=== PATIENT | female | born 1935 | race Caucasian/White ===

== ENCOUNTER 2018-02-27 14:32 | Observation (INO) ==
[2018-02-27 14:36] VITALS: BMI 20.7
--- NOTE | 2018-02-27 14:59 | DR.GENAD ---
HPI - PCP Primary Care Physician: MARLON - Complaint/Symptoms Chief Complaint:: PT. STATES ABOUT 6 WEEKS AGO SHE HAD A HERNIA REPAIR PER DR. NUÑEZ IN [place], [place]. PT. STATES SHE FELL ABOUT 3 WEEKS AGO AND CONTINUES TO HAVE LEFT LEG PAIN. SPOUSE STATES PT. HAS LOST A SIGNIFICANT AMOUNT OF WEIGHT AND HAS A POOR APPEPTITE. - Nurses notes reviewed Nurses Notes Review: Yes - Source History Provided: Patient, Family Member - Mode of Arrival Mode of Arrival: Ambulatory - Timing Onset of Chief Complaint: 02/06/18 Came on: Suddenly - Duration Duration: Constant Duration: Days PMH - PMH Past Medical History: Yes Past Medical History: Arthritis, Hypertension Past Surgical History: Yes Surgical History: Cholecystectomy, Hysterectomy, Other - Family History History of Family Medical Conditions: No - Social History Does patient currently use any type of tobacco product: No Have you used tobacco products in the last 12 months: No Type of Tobacco Use: None Does any household member use tobacco: No Alcohol Use: None Do you use any recreational Drugs:: No Lives With: Spouse Lives Where: Home - infectious screening In the last 2 months have you had wt loss of >10#?: NO Have you had fever, night sweats or hemotysis?: No Have you traveled outside the country in the last 6 months?: No Isolation: Standard PE - Vital Signs Vitals: Temperature 98.4 F Pulse Rate 90 Respiratory Rate 18 Blood Pressure 175/82 O2 Sat by Pulse Oximetry 98 - Discharge Plan Condition: Stable - Follow ups/Referrals Follow ups/Referrals: Varinder Prasad [Primary Care Provider] - 3 days - Instructions
[2018-02-27] MEDS ORDERED: TORADOL 60 MG VIAL IM ONE (15:29)
[2018-02-27] MEDS ORDERED: TORADOL 60 MG VIAL ONE (15:38)
[2018-02-27 15:50] LABS: BASOPHILS % (AUTO) 0.7 % (0.2-1.0); EOSINOPHILS # (AUTO) 0.1 x10^3/uL (0.0-0.2); HEMATOCRIT 32.1 % (36.0-47.0); HEMOGLOBIN 10.6 g/dL (12.0-16.0); LYMPHOCYTES # (AUTO) 1.4 X10^3/uL (1.3-2.9); LYMPHOCYTES % (AUTO) 22.7 % (21.0-51.0); MEAN CORPUSCULAR HEMOGLOBIN 30.2 pg (27.0-34.0); MEAN CORPUSCULAR HGB CONC 33.1 g/dL (33.0-35.0); MEAN CORPUSCULAR VOLUME 91.4 fL (80.0-100.0); MEAN PLATELET VOLUME 7.7 fL (7.4-11.0); MONOCYTES # (AUTO) 0.4 x10^3/uL (0.3-0.8); NEUTROPHILS # (AUTO) 4.3 x10^3/uL (2.2-4.8); NEUTROPHILS % (AUTO) 67.6 % (42.0-75.0); PLATELET COUNT 488 X10^3/uL (150.0-450.0); RED BLOOD COUNT 3.52 X10^6/uL (3.5-5.4); RED CELL DISTRIBUTION WIDTH 14.4 % (11.6-16.5); WHITE BLOOD COUNT 6.4 X10^3/uL (3.6-10.0)
[2018-02-27 15:51] LABS: BILIRUBIN,URINE NEGATIVE (NEGATIVE); BLOOD/HEMOGLOBIN,URINE 1+ (NEGATIVE); GLUCOSE, URINE NEGATIVE (NEGATIVE); KETONES,URINE 1+ (NEGATIVE); LEUKOCYTE ESTERASE ,URINE NEGATIVE (NEGATIVE); NITRITES,URINE NEGATIVE (NEGATIVE); PROTEIN,URINE NEGATIVE (NEGATIVE); UROBILINOGEN,URINE NORMAL (NORMAL)
[2018-02-27 16:00] LABS: APPEARANCE,URINE CLEAR (CLEAR); BACTERIA,URINE NEGATIVE /HPF (NEGATIVE); COLOR,URINE YELLOW (YELLOW); RBC,URINE 0-2 /HPF (NONE SEEN); SQUAMOUS EPITHELIAL CELL,UR RARE /HPF (NEGATIVE)
[2018-02-27 16:08] LABS: ALANINE AMINOTRANSFERASE 10 Units/L (12-78); ALBUMIN 3.2 g/dL (3.4-5.0); ALKALINE PHOSPHATASE 82 Units/L (46-116); ASPARTATE AMINO TRANSFERASE 12 Units/L (15-37); BLOOD UREA NITROGEN 21 mg/dL (7-18); CALCIUM 8.8 mg/dL (8.5-10.1); CARBON DIOXIDE 25.8 mmol/L (21-32); CHLORIDE 101 mmol/L (98-107); COR CA(FOR HYPOALB) 9.4 mg/dL (8.5-10.1); CREATININE 1.15 mg/dL (0.55-1.02); SODIUM 134 mmol/L (136-145); TOTAL PROTEIN 7.9 g/dL (6.4-8.2); eGFR NON BLACK RACES 48 (>60)
--- NOTE | 2018-02-27 16:40 | CT ---
HISTORY: Pain after fall Study: CT of the left femur without contrast Comparison: None Technique: Multiple axial images were obtained without administration of IV contrast. Sagittal and c oronal reformats were performed and reviewed. Dose reduction techniques including Automated Exposure Control (AEC) and adjustment of mA and kV were utilized. Findings: The visualized portions of the bony pelvis appear intact. The left femur and acetabulum demonstrate m oderate arthritic changes within the acute osseous abnormality. There are degenerative of the left kn ee joint. No effusion is seen. Intrapelvic structures are unremarkable with prior hysterectomy the di verticulosis noted. No free fluid or air identified. IMPRESSION: 1. Degenerative changes without acute osseous abnormality. Reported By:
[2018-02-27] MEDS: NS 1000 ML 1,000 ML IV SCH ×2 (18:22→21:26)
[2018-02-27] MEDS: NORCO 10/325 TAB PO PRN (23:03)
[2018-02-28] MEDS ORDERED: MORPHINE SULFATE INJ 2 MG INJ ONE (02:55)
[2018-02-28] MEDS: NS 1000 ML 1,000 ML IV SCH ×2 (07:45→20:49)
[2018-02-28] MEDS ORDERED: MORPHINE SULFATE JET NEB NEB ONE (09:10)
[2018-02-28] MEDS: MORPHINE SULFATE INJ 2 MG INJ IVP PRN ×3 (09:12→20:47)
--- NOTE | 2018-02-28 09:59 | CT ---
HISTORY: Injury, fall, persistent left lower extremity pain Study: CT left lower leg without contrast Comparison: None Technique: Axial noncontrast images with coronal and sagittal reformats. Dose reduction procedures we re used with mA/kv adjusted for body size. Findings: Imaging was obtained from just above the knee through the calcaneus. The distal femur, patella, tibia , fibula, and tibiotalar joints are normal. The talus and calcaneus are intact. No soft tissue abnorm ality is identified. No ankle or knee joint effusions are identified. IMPRESSION: No significant abnormality identified Reported By:
[2018-02-28] MEDS ORDERED: PHARMACY CONSULT - TPN XX SCH (10:00)
[2018-02-28] MEDS ORDERED: ALBUMIN HUMAN 25%- 100 ML 100 ML IV ONE (10:27)
[2018-02-28] MEDS: ALBUMIN HUMAN 25%- 100 ML 100 ML IV SCH (10:30)
[2018-02-28 14:09] LABS: ALANINE AMINOTRANSFERASE 8 Units/L (12-78); ALBUMIN 2.5 g/dL (3.4-5.0); ALKALINE PHOSPHATASE 62 Units/L (46-116); ASPARTATE AMINO TRANSFERASE 11 Units/L (15-37); BLOOD UREA NITROGEN 21 mg/dL (7-18); CALCIUM 7.9 mg/dL (8.5-10.1); CARBON DIOXIDE 19.9 mmol/L (21-32); CHLORIDE 106 mmol/L (98-107); COR CA(FOR HYPOALB) 9.1 mg/dL (8.5-10.1); CREATININE 1.16 mg/dL (0.55-1.02); SODIUM 137 mmol/L (136-145); TOTAL PROTEIN 6.3 g/dL (6.4-8.2); eGFR NON BLACK RACES 48 (>60)
[2018-02-28 14:10] LABS: BASOPHILS % (AUTO) 0.4 % (0.2-1.0); EOSINOPHILS # (AUTO) 0.2 x10^3/uL (0.0-0.2); EOSINOPHILS % (AUTO) 2.9 % (0.9-2.9); HEMATOCRIT 27.3 % (36.0-47.0); LYMPHOCYTES # (AUTO) 2.1 X10^3/uL (1.3-2.9); LYMPHOCYTES % (AUTO) 39.7 % (21.0-51.0); MEAN CORPUSCULAR HEMOGLOBIN 30.4 pg (27.0-34.0); MEAN CORPUSCULAR HGB CONC 32.9 g/dL (33.0-35.0); MEAN CORPUSCULAR VOLUME 92.4 fL (80.0-100.0); MONOCYTES # (AUTO) 0.6 x10^3/uL (0.3-0.8); MONOCYTES % (AUTO) 10.5 % (0.0-13.0); NEUTROPHILS # (AUTO) 2.5 x10^3/uL (2.2-4.8); NEUTROPHILS % (AUTO) 46.5 % (42.0-75.0); PLATELET COUNT 404 X10^3/uL (150.0-450.0); RED BLOOD COUNT 2.95 X10^6/uL (3.5-5.4); RED CELL DISTRIBUTION WIDTH 14.3 % (11.6-16.5); WHITE BLOOD COUNT 5.4 X10^3/uL (3.6-10.0)
[2018-02-28] MEDS ORDERED: PROCALAMINE 3 % 1,000 ML IV ONE (15:26)
[2018-02-28] MEDS: PROCALAMINE 3 % 1,000 ML with MVI INJ (ADULT) 10 ML IV SCH ×2 (15:29)
[2018-02-28] MEDS ORDERED: ULTRAM PO PRN (16:07)
[2018-02-28 16:28] LABS: CKMB % 3.8 % (<4); CREATINE KINASE 42 Units/L (26-192); CREATINE KINASE MB 1.6 ng/mL (0-4.0); TROPONIN I < 0.02 ng/mL (0-1.5)
--- NOTE | 2018-02-28 16:30 | VAS ---
HISTORY: Status post fall. Left hip pain.. Study: Left lower extremity venous vascular examination: Multiplanar ultrasonographic examination o f the deep venous system of the left lower extremity was performed using color, grayscale and pulsed Doppler imaging. Augmentation and compression techniques utilized. Comparison: None Findings: The common femoral vein, greater saphenous junction, superficial femoral vein, popliteal vein and tib ial vein show normal color flow. No intraluminal filling defects are identified. The common femoral vein, superficial femoral vein, popliteal vein and tibial vein show normal augmentation and compress ion. IMPRESSION: 1. No evidence of deep venous thrombosis involving the left lower extremity. Reported By:
[2018-02-28] MEDS: ZESTRIL TAB 20 MG PO SCH (17:00)
[2018-02-28] MEDS ORDERED: ZESTRIL TAB 20 MG ONE (18:59)
[2018-02-28] MEDS: CARAFATE PO SCH (20:46)
[2018-02-28] MEDS: LIPITOR TAB 20 MG PO SCH (20:46)
[2018-02-28] MEDS: ZANAFLEX PO PRN (23:36)
[2018-03-01] MEDS: MORPHINE SULFATE INJ 2 MG INJ IVP PRN ×2 (00:51→20:26)
[2018-03-01 06:17] LABS: BASOPHILS % (AUTO) 0.9 % (0.2-1.0); EOSINOPHILS # (AUTO) 0.2 x10^3/uL (0.0-0.2); EOSINOPHILS % (AUTO) 3.5 % (0.9-2.9); HEMATOCRIT 24.6 % (36.0-47.0); HEMOGLOBIN 8.2 g/dL (12.0-16.0); LYMPHOCYTES # (AUTO) 2.3 X10^3/uL (1.3-2.9); LYMPHOCYTES % (AUTO) 43.2 % (21.0-51.0); MEAN CORPUSCULAR HEMOGLOBIN 30.5 pg (27.0-34.0); MEAN CORPUSCULAR HGB CONC 33.2 g/dL (33.0-35.0); MEAN CORPUSCULAR VOLUME 91.9 fL (80.0-100.0); MEAN PLATELET VOLUME 8.1 fL (7.4-11.0); MONOCYTES # (AUTO) 0.5 x10^3/uL (0.3-0.8); MONOCYTES % (AUTO) 9.7 % (0.0-13.0); NEUTROPHILS # (AUTO) 2.3 x10^3/uL (2.2-4.8); NEUTROPHILS % (AUTO) 42.7 % (42.0-75.0); PLATELET COUNT 317 X10^3/uL (150.0-450.0); RED BLOOD COUNT 2.68 X10^6/uL (3.5-5.4); RED CELL DISTRIBUTION WIDTH 14.5 % (11.6-16.5); WHITE BLOOD COUNT 5.4 X10^3/uL (3.6-10.0)
[2018-03-01 06:44] LABS: ALANINE AMINOTRANSFERASE 8 Units/L (12-78); ALBUMIN 2.5 g/dL (3.4-5.0); ALKALINE PHOSPHATASE 51 Units/L (46-116); ASPARTATE AMINO TRANSFERASE 9 Units/L (15-37); BLOOD UREA NITROGEN 15 mg/dL (7-18); CALCIUM 7.7 mg/dL (8.5-10.1); CARBON DIOXIDE 22.5 mmol/L (21-32); CHLORIDE 108 mmol/L (98-107); COR CA(FOR HYPOALB) 8.9 mg/dL (8.5-10.1); SODIUM 138 mmol/L (136-145); TOTAL PROTEIN 5.9 g/dL (6.4-8.2); eGFR NON BLACK RACES > 60 (>60)
[2018-03-01] MEDS ORDERED: ZESTRIL TAB 20 MG ONE (07:32)
[2018-03-01] MEDS: ALBUMIN HUMAN 25%- 100 ML 100 ML IV SCH (08:04)
[2018-03-01] MEDS: CARAFATE PO SCH (08:05)
[2018-03-01] MEDS: ZESTRIL TAB 20 MG PO SCH (08:06)
[2018-03-01] MEDS: NORCO 10/325 TAB PO PRN (08:09)
[2018-03-01] MEDS ORDERED: PERCOCET TAB 5/325 MG PO PRN (08:46)
[2018-03-01] MEDS ORDERED: TobraDEX OPHTH OPHTH 1 DOSE EACHEYE PRN (08:46)
[2018-03-01] MEDS: NS 1000 ML 1,000 ML IV SCH (09:46)
[2018-03-01] MEDS: CARAFATE ORAL SUSP PO SCH ×2 (09:50→20:25)
[2018-03-01] MEDS ORDERED: TobraDEX OPHTH SUSP ONE (14:23)
[2018-03-01] MEDS: PROCALAMINE 3 % 1,000 ML with MVI INJ (ADULT) 10 ML IV SCH ×2 (14:29)
[2018-03-01] MEDS: TobraDEX OPHTH SUSP RIGHTEYE SCH ×3 (16:10→23:52)
--- NOTE | 2018-03-01 16:27 | DR.H&P ---
H&P - History & Physical for Day of: H&P Date: 02/27/18 - Chief Complaint Chief Complaint: GENERALIZED WEAKNESS, LEFT LEG PAIN, DIFFICULTY SWALLOWING - History of Present Illness History of Present Illness: IS A 82 YEAR OLD PATIENT OF OURS WHO PRESENTED TO THE EMERGENCY ROOM WITH COMPLAINTS OF SEVERE LEFT LEG PAIN, GENERALIZED WEAKNESS, AND DIFFICULTY SWALLOWING. SHE REPORTS FALLING APPROXIMATELY THREE WEEKS AGO AND HAS HAD PAIN TO LEFT LEG SINCE. SPOUSE REPORTS THAT PATIENT HAS ALSO HAD A DECREASED APPETITIE AND HAS LOST A SIGNIFICANT AMOUNT OF WEIGHT. ON ARRIVAL, VITALS WERE 98.4-90-18-98%-175/82. LABS WERE OBTAINED. ABNORMAL LAB VALUES INCLUDE THE FOLLOWING: HGB 10.6, HCT 32.1, PLT COUNT 488, SODIUM 134, POTASSIUM 5.2, BUN 21, CREATINE 1.15, AST 12, ALT 10, ALBUMIN 3.2. A URINALYSIS WAS OBTAINED AND REVEALED: WBC- NONE SEEN, RBC 0-2, BACTERIA NEGATIVE, LEUKOCYTES NEGATIVE. A CT OF THE LEFT FEMUR WITHOUT CONTRAST WAS OBTAINED AND REVEALED DEGENERATIVE CHANGES WITHOUT ACUTE OSSEOUS ABNORMALITY. A CT OF THE LEFT LOWER LEG WITHOUT CONTRAST WAS ALSO OBTAINED AND REVEALED NO SIGNIFICANT ABNORMALITY. PATIENT WAS ADMITTED FOR FURTHER EVALUATION AND TREATMENT OF DEHYDRATION, DYSPHAGIA, AND LEFT LEG PAIN. SHE WAS STARTED ON NORMAL SALINE AT 80ML/HR. WE PLAN TO FOLLOW UP WITH AM LABS AND CONTINUE TO MONITOR PATIENT. - Past Medical History Past Medical History: Arthritis, Hypertension - Past Surgical History Surgical History: Appendectomy, Cholecystectomy, Hysterectomy, Other - Family History Family Medical History: Hypertension - Social History Does patient currently use any type of tobacco product: No Have you used tobacco products in the last 12 months: No Type of Tobacco Use: None Does any household member use tobacco: No Alcohol Use: None Drug Use: None - Medications Home Medications: Hydrocodone/Acetaminophen [Hydrocodone-Acetamin 10-325 mg] 1 tab PO TID PRN [History Confirmed 02/27/18] atorvastatin 20 mg PO HS 02/27/18 [History Confirmed 02/27/18] lisinopril 1 tab PO DAILY 02/27/18 [History Confirmed 02/27/18] metaxalone 1 tab PO Q6HR PRN 02/27/18 [History Confirmed 02/27/18] oxycodone-acetaminophen 2 tabs PO Q4H PRN 02/27/18 [History Confirmed 02/27/18] sucralfate 1 tab PO BID 02/27/18 [History Confirmed 02/27/18] sucralfate [Carafate] 1 teaspoon PO BID 02/27/18 [History Confirmed 02/27/18] tramadol 1 tab PO Q4-6H PRN 02/27/18 [History Confirmed 02/27/18] - Review of Systems Constitutional: Weakness, Malaise, Other (DECREASED APPETITIE). denies: Fever, Chills Eyes: No Symptoms Reported ENT: Other (DIFFICULTY SWALLOWING) Respiratory: No Symptoms Reported Cardiovascular: No Symptoms Reported Gastrointestinal: No Symptoms Reported Genitourinary: No Symptoms Reported Musculoskeletal: No Symptoms Reported Skin: No Symptoms Reported Neurological: Weakness - Physical Exam Vital Signs: Temperature 98.6 F Pulse Rate [Radial] 71 Pulse Rate 90 Respiratory Rate 18 Blood Pressure [Right Arm] 182/81 Blood Pressure 175/82 O2 Sat by Pulse Oximetry 98 Oriented: Normal Eyes: Normal Ear: Normal Nose: Normal Throat: Other (DYSPHAGIA) Respiratory: Clear Throughout Cardiovascular: Normal : Normal Auscultation: Bowel Sounds: Normal Palpation: Normal Tenderness: Normal Skin: Normal Musculoskeletal: Left, Leg, Tender Psychiatric: Normal Mood Description: Calm Affect: Normal Speech Pattern: Clear - Assessment/Plan (1) Dehydration Status: Acute Plan: NORMAL SALINE AT 80ML/HR, CONTINUE TO MONITOR (2) Dysphagia Qualifiers: Dysphagia type: unspecified Qualified Code(s): R13.10 - Dysphagia, unspecified Status: Acute Plan: SPEECH CONSULT, CONTINUE TO MONITOR (3) Left leg pain Status: Acute Plan: OBTAIN VENOUS DOPPLER IN THE MORNING - Allergies Allergies/Adverse Reactions: Allergies Allergy/AdvReac Type Severity Reaction Status Date / Time No Known Drug Allergies Allergy Verified 02/27/18 14:36
[2018-03-01] MEDS: LIPITOR TAB 20 MG PO SCH (20:25)
[2018-03-01] MEDS: ZANAFLEX PO PRN (23:00)
[2018-03-02] MEDS: TobraDEX OPHTH SUSP RIGHTEYE SCH ×2 (03:42→06:04)
[2018-03-02] MEDS: MORPHINE SULFATE INJ 2 MG INJ IVP PRN (06:17)
[2018-03-02] MEDS ORDERED: ZESTRIL TAB 20 MG ONE (07:09)
[2018-03-02] MEDS: ZESTRIL TAB 20 MG PO SCH (08:11)
[2018-03-02] MEDS: CARAFATE ORAL SUSP PO SCH (08:11)
[2018-03-02] MEDS: ALBUMIN HUMAN 25%- 100 ML 100 ML IV SCH (08:11)
[2018-03-02 08:31] VITALS: BP 104/67
[2018-03-02] MEDS ORDERED: NS 1000 ML IV SCH (09:00)
[2018-03-02] MEDS ORDERED: TobraDEX OPHTH OPHTH 1 DOSE EACHEYE PRN (10:00)
[2018-03-02] MEDS ORDERED: TobraDEX OPHTH OINT RIGHTEYE SCH (10:00)
--- NOTE | 2018-03-02 21:18 | PCM.PROG ---
Progress Note - Progress Note for Day of Date: 02/28/18 - Subjective Subjective: WAS ADMITTED FOR TREATMENT OF DEHYDRATION, DYSPHAGIA, AND LEFT LEG PAIN. TODAY, SHE IS ALERT AND ORIENTED, LYING IN BED ON MORNING ROUNDS. SHE IS NOTED WITH COMPLAINTS OF GENERALIZED WEAKNESS, LEFT LEG PAIN, AND DIFFICULTY SWALLOWING TODAY. ON EXAMINATION, HEART IS REGULAR IN RATE AND RHYTHM. BILATERAL LUNGS ARE NOTED WITH DIMINISHED LUNG SOUNDS THROUGHOUT. ABDOMEN IS ROUND, SOFT, AND NON-TENDER WITH NORMAL BOWEL SOUNDS NOTED IN ALL QUADRANTS. LEFT LEG IS NOTED WITH DECREASED RANGE OF MOTION. SHE REPORTS PAIN TO KNEE AND LOWER LEG. HER VITALS THIS MORNING ARE 99.0-82-20-98%-157/74. LABS WERE OBTAINED. ABNORMAL LAB VALUES INCLUDE THE FOLLOWING: RBC 2.95, HGB 9.0, HCT 27.3, CARBON DIOXIDE 19.9, BUN 21, CREATININE 1.16, CALCIUM 7.9, AST 11, ALT 8, TOTAL PROTEIN 6.3, ALBUMIN 2.5. TODAY, WE WILL OVTAIN A VENOUS DOPPLER OF THE LEFT LEG, CARDIAC ENZYMES, ORDER PT/OT, AND START PERIPHERAL TPN AND ALBUMIN 25% IV DAILY. OTHERWISE, WE WILL FOLLOW UP WITH AM LABS AND CONTINUE TO MONITOR PATIENT. - Past Medical Family Social History Past Med/Fam/Surg Hx: No changes since H&P Allergies: Allergies No Known Drug Allergies Allergy (Verified 02/27/18 14:36) - Review of Systems ROS: No change since H&P - Vital Signs and I&O's Vital Signs: Temperature 98.3 F Pulse Rate [Radial] 63 Pulse Rate 90 Respiratory Rate 18 Blood Pressure [Left Arm] 104/67 Blood Pressure [Right Arm] 147/65 Blood Pressure 175/82 O2 Sat by Pulse Oximetry 96 Intake and Output: Intake & Output 02/28/18 03/01/18 03/02/18 03/03/18 11:59 11:59 11:59 11:59 Intake Total 2720 / 2720 2420 / 2420 Balance 2720 / 2720 2420 / 2420 - Physical Exam Oriented: Normal Eyes: Normal Ear: Normal Nose: Normal Throat: Other (DYSPHAGIA) Cardiovascular: Normal : Normal Auscultation: Bowel Sounds: Normal Palpation: Normal Tenderness: Normal Skin: Normal Musculoskeletal: Left, Leg, Tender Psychiatric: Normal Mood Description: Calm Affect: Normal Speech Pattern: Clear, Appropriate - Laboratory and Diagnostics Result Diagrams: 03/01/18 04:51 03/01/18 04:51 Labs: Laboratory WBC 5.4 X10^3/uL (3.6-10.0) 03/01/18 04:51 RBC 2.68 X10^6/uL (3.5-5.4) L 03/01/18 04:51 Hgb 8.2 g/dL (12.0-16.0) L 03/01/18 04:51 Hct 24.6 % (36.0-47.0) L 03/01/18 04:51 MCV 91.9 fL (80.0-100.0) 03/01/18 04:51 MCH 30.5 pg (27.0-34.0) 03/01/18 04:51 MCHC 33.2 g/dL (33.0-35.0) 03/01/18 04:51 RDW 14.5 % (11.6-16.5) 03/01/18 04:51 Plt Count 317 X10^3/uL (150.0-450.0) 03/01/18 04:51 MPV 8.1 fL (7.4-11.0) 03/01/18 04:51 Neut % (Auto) 42.7 % (42.0-75.0) 03/01/18 04:51 Lymph % (Auto) 43.2 % (21.0-51.0) 03/01/18 04:51 [place] % (Auto) 9.7 % (0.0-13.0) 03/01/18 04:51 Eos % (Auto) 3.5 % (0.9-2.9) H 03/01/18 04:51 Baso % (Auto) 0.9 % (0.2-1.0) 03/01/18 04:51 Neut # (Auto) 2.3 x10^3/uL (2.2-4.8) 03/01/18 04:51 Lymph # (Auto) 2.3 X10^3/uL (1.3-2.9) 03/01/18 04:51 [place] # (Auto) 0.5 x10^3/uL (0.3-0.8) 03/01/18 04:51 Eos # (Auto) 0.2 x10^3/uL (0.0-0.2) 03/01/18 04:51 Baso # (Auto) 0.0 X10^3/uL (0.0-0.1) 03/01/18 04:51 Absolute Nucleated RBC 0.0 /100WBC 03/01/18 04:51 Sodium 138 mmol/L (136-145) 03/01/18 04:51 Corrected Sodium TNP 03/01/18 04:51 Potassium 4.7 mmol/L (3.5-5.1) 03/01/18 04:51 Chloride 108 mmol/L (98-107) H 03/01/18 04:51 Carbon Dioxide 22.5 mmol/L (21-32) 03/01/18 04:51 BUN 15 mg/dL (7-18) 03/01/18 04:51 Creatinine 0.80 mg/dL (0.55-1.02) 03/01/18 04:51 Est GFR (MDRD) Af Amer > 60 (>60) 03/01/18 04:51 Est GFR (MDRD) Non-Af > 60 (>60) 03/01/18 04:51 Glucose 84 mg/dL (65-99) 03/01/18 04:51 Calcium 7.7 mg/dL (8.5-10.1) L 03/01/18 04:51 Corrected Calcium 8.9 mg/dL (8.5-10.1) 03/01/18 04:51 Total Bilirubin 0.30 mg/dL (0.2-1.0) 03/01/18 04:51 AST 9 Units/L (15-37) L 03/01/18 04:51 ALT 8 Units/L (12-78) L 03/01/18 04:51 Alkaline Phosphatase 51 Units/L (46-116) 03/01/18 04:51 Creatine Kinase 42 Units/L (26-192) 02/28/18 11:50 CK-MB (CK-2) 1.6 ng/mL (0-4.0) 02/28/18 11:50 CK/CKMB % Calc 3.8 % (<4) 02/28/18 11:50 Troponin I < 0.02 ng/mL (0-1.5) 02/28/18 11:50 Total Protein 5.9 g/dL (6.4-8.2) L 03/01/18 04:51 Albumin 2.5 g/dL (3.4-5.0) L 03/01/18 04:51 Globulin 3.4 g/dL (2.5-4.5) 03/01/18 04:51 Albumin/Globulin Ratio 0.7 Ratio (1.1-2.1) L 03/01/18 04:51 Specimen Type Clean catch urine 02/27/18 15:43 Urine Color Yellow (YELLOW) 02/27/18 15:43 Urine Appearance Clear (CLEAR) 02/27/18 15:43 Urine pH 5.0 (5.0 - 8.0) 02/27/18 15:43 Ur Specific [place] 1.015 (1.000-1.030) 02/27/18 15:43 Urine Protein Negative (NEGATIVE) 02/27/18 15:43 Urine Glucose (UA) Negative (NEGATIVE) 02/27/18 15:43 Urine Ketones 1+ (NEGATIVE) 02/27/18 15:43 Urine Occult Blood 1+ (NEGATIVE) 02/27/18 15:43 Urine Nitrite Negative (NEGATIVE) 02/27/18 15:43 Urine Bilirubin Negative (NEGATIVE) 02/27/18 15:43 Urine Urobilinogen Normal (NORMAL) 02/27/18 15:43 Ur Leukocyte Esterase Negative (NEGATIVE) 02/27/18 15:43 Urine RBC 0-2 /HPF (NONE SEEN) 02/27/18 15:43 Urine WBC None seen /HPF (NONE SEEN) 02/27/18 15:43 Ur Squamous Epith Cells Rare /HPF (NEGATIVE) 02/27/18 15:43 Urine Bacteria Negative /HPF (NEGATIVE) 02/27/18 15:43 Ur Culture Indicated? No/not indicated 02/27/18 15:43 - Plan (1) Dehydration Status: Acute Plan: NORMAL SALINE AT 80ML/HR, CONTINUE TO MONITOR (2) Dysphagia Status: Acute Qualifiers: Dysphagia type: unspecified Qualified Code(s): R13.10 - Dysphagia, unspecified Plan: SPEECH CONSULT, CONTINUE TO MONITOR (3) Left leg pain Status: Acute Plan: OBTAIN VENOUS DOPPLER, CONTINUE TO MONITOR (4) Generalized weakness Status: Acute Plan: PT/OT, TPN, ALBUMIN, CONTINUE TO MONITOR (5) Hypoproteinemia Status: Acute Plan: START PERIPHERAL TPN, ALBUMIN, CONTINUE TO MONITOR
--- NOTE | 2018-03-02 21:19 | PCM.PROG ---
Progress Note - Progress Note for Day of Date: 03/01/18 - Subjective Subjective: WAS ADMITTED FOR TREATMENT OF DEHYDRATION, DYSPHAGIA, AND LEFT LEG PAIN. TODAY, SHE IS ALERT AND ORIENTED, LYING IN BED ON MORNING ROUNDS. SHE CONTINUES WITH COMPLAINTS OF GENERALIZED WEAKNESS AND LEFT LEG PAIN. SHE ALSO REPORTS REDNESS AND PAIN TO THE RIGHT EYE. ON EXAMINATION, HEART IS REGULAR IN RATE AND RHYTHM. BILATERAL LUNGS ARE NOTED TO BE CLEAR TO AUSCULTATION. ABDOMEN IS ROUND, SOFT, AND NON-TENDER WITH NORMAL BOWEL SOUNDS NOTED IN ALL QUADRANTS. HER VITALS THIS MORNING ARE 98.2-69-18-98%-167/70. LABS WERE OBTAINED. ABNORMAL LAB VALUES INCLUDE THE FOLLOWING: RBC 2.68, HGB 8.2, HCT 24.6, CHLORIDE 108, CALCIUM 7.7, AST 9, ALT 8, TOTAL PROTEIN 5.9, ALBUMIN 2.5. CARDIAC ENZYMES WITHIN NORMAL LIMITS. A VENOUS DOPPLER WAS OBTAINED AND REVEALED NO EVIDENCE OF DVT INVOLVING THE LEFT LOWER EXTREMITY. TODAY, WE WILL DISCONTINUE THE NORCO AND ORDER PERCOCET 5/325 ONE TABLET PO Q4H PRN. WE WILL ALSO START TOBRADEX EYE DROPS TO RIGHT EYE Q4H. OTHERWISE, WE WILL FOLLOW UP WITH AM LABS AND CONTINUE TO MONITOR PATIENT. - Past Medical Family Social History Past Med/Fam/Surg Hx: No changes since H&P Allergies: Allergies No Known Drug Allergies Allergy (Verified 02/27/18 14:36) - Review of Systems ROS: No change since H&P - Vital Signs and I&O's Vital Signs: Temperature 98.3 F Pulse Rate [Radial] 63 Pulse Rate 90 Respiratory Rate 18 Blood Pressure [Left Arm] 104/67 Blood Pressure [Right Arm] 147/65 Blood Pressure 175/82 O2 Sat by Pulse Oximetry 96 Intake and Output: Intake & Output 02/28/18 03/01/18 03/02/18 03/03/18 11:59 11:59 11:59 11:59 Intake Total 2720 / 2720 2420 / 2420 Balance 2720 / 2720 2420 / 2420 - Physical Exam Oriented: Normal Eyes: Normal Ear: Normal Nose: Normal Throat: Normal, Other (DYSPHAGIA) Respiratory: Normal Cardiovascular: Normal : Normal Auscultation: Bowel Sounds: Normal Palpation: Normal Tenderness: Normal Skin: Normal Musculoskeletal: Left, Leg, Tender Psychiatric: Normal Mood Description: Calm Affect: Normal Speech Pattern: Clear, Appropriate - Laboratory and Diagnostics Result Diagrams: 03/01/18 04:51 03/01/18 04:51 Labs: Laboratory WBC 5.4 X10^3/uL (3.6-10.0) 03/01/18 04:51 RBC 2.68 X10^6/uL (3.5-5.4) L 03/01/18 04:51 Hgb 8.2 g/dL (12.0-16.0) L 03/01/18 04:51 Hct 24.6 % (36.0-47.0) L 03/01/18 04:51 MCV 91.9 fL (80.0-100.0) 03/01/18 04:51 MCH 30.5 pg (27.0-34.0) 03/01/18 04:51 MCHC 33.2 g/dL (33.0-35.0) 03/01/18 04:51 RDW 14.5 % (11.6-16.5) 03/01/18 04:51 Plt Count 317 X10^3/uL (150.0-450.0) 03/01/18 04:51 MPV 8.1 fL (7.4-11.0) 03/01/18 04:51 Neut % (Auto) 42.7 % (42.0-75.0) 03/01/18 04:51 Lymph % (Auto) 43.2 % (21.0-51.0) 03/01/18 04:51 [place] % (Auto) 9.7 % (0.0-13.0) 03/01/18 04:51 Eos % (Auto) 3.5 % (0.9-2.9) H 03/01/18 04:51 Baso % (Auto) 0.9 % (0.2-1.0) 03/01/18 04:51 Neut # (Auto) 2.3 x10^3/uL (2.2-4.8) 03/01/18 04:51 Lymph # (Auto) 2.3 X10^3/uL (1.3-2.9) 03/01/18 04:51 [place] # (Auto) 0.5 x10^3/uL (0.3-0.8) 03/01/18 04:51 Eos # (Auto) 0.2 x10^3/uL (0.0-0.2) 03/01/18 04:51 Baso # (Auto) 0.0 X10^3/uL (0.0-0.1) 03/01/18 04:51 Absolute Nucleated RBC 0.0 /100WBC 03/01/18 04:51 Sodium 138 mmol/L (136-145) 03/01/18 04:51 Corrected Sodium TNP 03/01/18 04:51 Potassium 4.7 mmol/L (3.5-5.1) 03/01/18 04:51 Chloride 108 mmol/L (98-107) H 03/01/18 04:51 Carbon Dioxide 22.5 mmol/L (21-32) 03/01/18 04:51 BUN 15 mg/dL (7-18) 03/01/18 04:51 Creatinine 0.80 mg/dL (0.55-1.02) 03/01/18 04:51 Est GFR (MDRD) Af Amer > 60 (>60) 03/01/18 04:51 Est GFR (MDRD) Non-Af > 60 (>60) 03/01/18 04:51 Glucose 84 mg/dL (65-99) 03/01/18 04:51 Calcium 7.7 mg/dL (8.5-10.1) L 03/01/18 04:51 Corrected Calcium 8.9 mg/dL (8.5-10.1) 03/01/18 04:51 Total Bilirubin 0.30 mg/dL (0.2-1.0) 03/01/18 04:51 AST 9 Units/L (15-37) L 03/01/18 04:51 ALT 8 Units/L (12-78) L 03/01/18 04:51 Alkaline Phosphatase 51 Units/L (46-116) 03/01/18 04:51 Creatine Kinase 42 Units/L (26-192) 02/28/18 11:50 CK-MB (CK-2) 1.6 ng/mL (0-4.0) 02/28/18 11:50 CK/CKMB % Calc 3.8 % (<4) 02/28/18 11:50 Troponin I < 0.02 ng/mL (0-1.5) 02/28/18 11:50 Total Protein 5.9 g/dL (6.4-8.2) L 03/01/18 04:51 Albumin 2.5 g/dL (3.4-5.0) L 03/01/18 04:51 Globulin 3.4 g/dL (2.5-4.5) 03/01/18 04:51 Albumin/Globulin Ratio 0.7 Ratio (1.1-2.1) L 03/01/18 04:51 Specimen Type Clean catch urine 02/27/18 15:43 Urine Color Yellow (YELLOW) 02/27/18 15:43 Urine Appearance Clear (CLEAR) 02/27/18 15:43 Urine pH 5.0 (5.0 - 8.0) 02/27/18 15:43 Ur Specific [place] 1.015 (1.000-1.030) 02/27/18 15:43 Urine Protein Negative (NEGATIVE) 02/27/18 15:43 Urine Glucose (UA) Negative (NEGATIVE) 02/27/18 15:43 Urine Ketones 1+ (NEGATIVE) 02/27/18 15:43 Urine Occult Blood 1+ (NEGATIVE) 02/27/18 15:43 Urine Nitrite Negative (NEGATIVE) 02/27/18 15:43 Urine Bilirubin Negative (NEGATIVE) 02/27/18 15:43 Urine Urobilinogen Normal (NORMAL) 02/27/18 15:43 Ur Leukocyte Esterase Negative (NEGATIVE) 02/27/18 15:43 Urine RBC 0-2 /HPF (NONE SEEN) 02/27/18 15:43 Urine WBC None seen /HPF (NONE SEEN) 02/27/18 15:43 Ur Squamous Epith Cells Rare /HPF (NEGATIVE) 02/27/18 15:43 Urine Bacteria Negative /HPF (NEGATIVE) 02/27/18 15:43 Ur Culture Indicated? No/not indicated 02/27/18 15:43 - Plan (1) Dehydration Status: Acute Plan: NORMAL SALINE AT 80ML/HR, CONTINUE TO MONITOR (2) Dysphagia Status: Acute Qualifiers: Dysphagia type: unspecified Qualified Code(s): R13.10 - Dysphagia, unspecified Plan: SPEECH CONSULT, CONTINUE TO MONITOR (3) Left leg pain Status: Acute Plan: PERCOCET 5/325 PO Q4H PRN, CONTINUE TO MONITOR (4) Generalized weakness Status: Acute Plan: PT/OT, TPN, ALBUMIN, CONTINUE TO MONITOR (5) Hypoproteinemia Status: Acute Plan: START PERIPHERAL TPN, ALBUMIN, CONTINUE TO MONITOR
--- NOTE | 2018-03-04 23:01 | DR.CARTERD ---
- Discharge Summary for: Discharge Summary for Date of:: 03/02/18 - Admission Date Date of Admission: 02/27/18 - Admission Diagnoses Admission Diagnosis: (1) Dehydration (2) Dysphagia (3) Left leg pain - Discharge Date Discharge Date: 03/02/18 - Discharge Diagnoses Discharge Diagnosis: (1) Dehydration (2) Dysphagia (3) Left leg pain (4) Generalized weakness (5) Hypoproteinemia - Hospital Course Hospital Course: DAY ONE, IS A 82 YEAR OLD PATIENT OF OURS WHO PRESENTED TO THE EMERGENCY ROOM WITH COMPLAINTS OF SEVERE LEFT LEG PAIN, GENERALIZED WEAKNESS, AND DIFFICULTY SWALLOWING. SHE REPORTED FALLING APPROXIMATELY THREE WEEKS PRIOR AND HAD PAIN TO LEFT LEG SINCE. SPOUSE REPORTED THAT PATIENT HAD ALSO HAD A DECREASED APPETITE AND HAD LOST A SIGNIFICANT AMOUNT OF WEIGHT. ON ARRIVAL, VITALS WERE 98.4-90-18-98%-175/82. LABS WERE OBTAINED. ABNORMAL LAB VALUES INCLUDED THE FOLLOWING: HGB 10.6, HCT 32.1, PLT COUNT 488, SODIUM 134, POTASSIUM 5.2, BUN 21, CREATINE 1.15, AST 12, ALT 10, ALBUMIN 3.2. A URINALYSIS WAS OBTAINED AND REVEALED: WBC- NONE SEEN, RBC 0-2, BACTERIA NEGATIVE, LEUKOCYTES NEGATIVE. A CT OF THE LEFT FEMUR WITHOUT CONTRAST WAS OBTAINED AND REVEALED DEGENERATIVE CHANGES WITHOUT ACUTE OSSEOUS ABNORMALITY. A CT OF THE LEFT LOWER LEG WITHOUT CONTRAST WAS ALSO OBTAINED AND REVEALED NO SIGNIFICANT ABNORMALITY. PATIENT WAS ADMITTED FOR FURTHER EVALUATION AND TREATMENT OF DEHYDRATION, DYSPHAGIA, AND LEFT LEG PAIN. SHE WAS STARTED ON NORMAL SALINE AT 80ML/HR. WE CONTINUED TO MONITOR PATIENT. DAY TWO, PATIENT WAS ALERT AND ORIENTED, LYING IN BED ON MORNING ROUNDS. SHE WAS NOTED WITH COMPLAINTS OF GENERALIZED WEAKNESS, LEFT LEG PAIN, AND DIFFICULTY SWALLOWING. ON EXAMINATION, HEART WAS REGULAR IN RATE AND RHYTHM. BILATERAL LUNGS WERE NOTED WITH DIMINISHED LUNG SOUNDS THROUGHOUT. ABDOMEN WAS ROUND, SOFT, AND NON-TENDER WITH NORMAL BOWEL SOUNDS NOTED IN ALL QUADRANTS. LEFT LEG WAS NOTED WITH DECREASED RANGE OF MOTION. SHE REPORTED PAIN TO KNEE AND LOWER LEG. HER VITALS WERE 99.0-82-20-98%-157/74. LABS WERE OBTAINED. ABNORMAL LAB VALUES INCLUDED THE FOLLOWING: RBC 2.95, HGB 9.0, HCT 27.3, CARBON DIOXIDE 19.9, BUN 21, CREATININE 1.16, CALCIUM 7.9, AST 11, ALT 8, TOTAL PROTEIN 6.3, ALBUMIN 2.5. WE STARTED PERIPHERAL TPN AND ALBUMIN 25% IV DAILY. WE CONTINUED TO MONITOR PATIENT. DAY THREE, SHE CONTINUED WITH COMPLAINTS OF GENERALIZED WEAKNESS AND LEFT LEG PAIN. SHE ALSO REPORTED REDNESS AND PAIN TO THE RIGHT EYE. ON EXAMINATION, HEART WAS REGULAR IN RATE AND RHYTHM. BILATERAL LUNGS WERE NOTED TO BE CLEAR TO AUSCULTATION. ABDOMEN WAS ROUND, SOFT, AND NON-TENDER WITH NORMAL BOWEL SOUNDS NOTED IN ALL QUADRANTS. HER VITALS WERE 98.2-69-18-98%-167/70. LABS WERE OBTAINED. ABNORMAL LAB VALUES INCLUDED THE FOLLOWING: RBC 2.68, HGB 8.2, HCT 24.6, CHLORIDE 108, CALCIUM 7.7, AST 9, ALT 8, TOTAL PROTEIN 5.9, ALBUMIN 2.5. CARDIAC ENZYMES WITHIN NORMAL LIMITS. A VENOUS DOPPLER WAS OBTAINED AND REVEALED NO EVIDENCE OF DVT INVOLVING THE LEFT LOWER EXTREMITY. WE DISCONTINUED THE NORCO AND ORDER PERCOCET 5/325 ONE TABLET PO Q4H PRN. WE ALSO STARTED TOBRADEX EYE DROPS TO RIGHT EYE Q4H. DAY FOUR, PATIENT REPORTED SHE WAS FEELING BETTER. SHE REPORTED LEFT LEG PAIN WAS IMPROVED. PATIENT REPORTED NO DIFFICULTY WITH SWALLOWING. VITAL SIGNS STABLE. LABS WNL. WE PLANNED FOR DISCHARGE. INSTRUCTIONS FOR MEDICATIONS AND FOLLOW UP WERE DISCUSSED WITH PATIENT AND FAMILY, BOTH VOICED UNDERSTANDING. PATIENT DISCHARGED HOME IN STABLE CONDITION WITH FAMILY. - Discharge Medications Discharge Medications: Hydrocodone/Acetaminophen [Hydrocodone-Acetamin 10-325 mg] 1 tab PO TID PRN [History] atorvastatin 20 mg PO HS 02/27/18 [History] lisinopril 1 tab PO DAILY 02/27/18 [History] metaxalone 1 tab PO Q6HR PRN 02/27/18 [History] oxycodone-acetaminophen 2 tabs PO Q4H PRN 02/27/18 [History] sucralfate 1 tab PO BID 02/27/18 [History] sucralfate [Carafate] 1 teaspoon PO BID 02/27/18 [History] tramadol 1 tab PO Q4-6H PRN 02/27/18 [History] tobramycin-dexamethasone [TobraDex] 1 applic OPHTHALMIC (EYE) TID #1 g 03/02/18 [Rx] - Discharge Disposition Discharge Disposition: PATIENT IS TO FOLLOW UP WITH [facility] IN ONE WEEK.
== END 2018-03-02 10:15 | disposition home or self-care (01) ==
LOC: ER 14:50 → MED/SURG 17:55
PROVIDERS: ADMIT Internal Medicine; ATTEND Internal Medicine
DX: E77.8 Other disorders of glycoprotein metabolism; E86.0 Dehydration; R13.11 Dysphagia, oral phase; Z91.81 History of falling; M79.605 Pain in left leg; R25.8 Other abnormal involuntary movements; I10 Essential (primary) hypertension; R26.89 Other abnormalities of gait and mobility
CPT/HCPCS: 36415; 73700; 80053; 81001; 82550; 82553; 84484; 85025; 93971; 94760; 96365; 96367; 96372; 97110; 97163; 99282; 99284; A4216; A4222; B5200; P9047; G0378; J1885; J2270; J7030

== ENCOUNTER 2019-10-26 20:21 | Observation (INO) ==
[2019-10-26 20:44] VITALS: BMI 20.9
[2019-10-26] MEDS ORDERED: NS 1000 ML 1,000 ML IV ONE (21:07)
[2019-10-26] MEDS ORDERED: MORPHINE SULFATE INJ 2 MG INJ IVP ONE (21:07)
[2019-10-26 21:08] LABS: BILIRUBIN,URINE NEGATIVE (NEGATIVE); BLOOD/HEMOGLOBIN,URINE 1+ (NEGATIVE); GLUCOSE, URINE NEGATIVE (NEGATIVE); KETONES,URINE NEGATIVE (NEGATIVE); LEUKOCYTE ESTERASE ,URINE NEGATIVE (NEGATIVE); NITRITES,URINE NEGATIVE (NEGATIVE); PROTEIN,URINE 1+ (NEGATIVE); UROBILINOGEN,URINE NORMAL (NORMAL)
[2019-10-26] MEDS ORDERED: NS 1000 ML 1,000 ML ONE (21:08)
[2019-10-26 21:09] LABS: APPEARANCE,URINE CLEAR (CLEAR); COLOR,URINE YELLOW (YELLOW)
[2019-10-26] MEDS ORDERED: MORPHINE SULFATE INJ 2 MG INJ ONE (21:09)
[2019-10-26] MEDS ORDERED: TORADOL 15 MG VIAL IVP ONE (21:09)
[2019-10-26 21:18] LABS: BACTERIA,URINE NEGATIVE /HPF (NEGATIVE); RBC,URINE 0-2 /HPF (0-3); SQUAMOUS EPITHELIAL CELL,UR NEGATIVE /HPF (NEGATIVE)
[2019-10-26] MEDS ORDERED: TORADOL 15 MG VIAL ONE (21:21)
[2019-10-26 21:25] LABS: BASOPHILS % (AUTO) 0.3 % (0.2-1.0); EOSINOPHILS # (AUTO) 0.1 x10^3/uL (0.0-0.2); EOSINOPHILS % (AUTO) 1.4 % (0.9-2.9); HEMATOCRIT 26.9 % (36.0-47.0); HEMOGLOBIN 8.8 g/dL (12.0-16.0); LYMPHOCYTES # (AUTO) 0.8 X10^3/uL (1.3-2.9); LYMPHOCYTES % (AUTO) 10.4 % (21.0-51.0); MEAN CORPUSCULAR HEMOGLOBIN 30.4 pg (27.0-34.0); MEAN CORPUSCULAR HGB CONC 32.7 g/dL (33.0-35.0); MEAN CORPUSCULAR VOLUME 93.1 fL (80.0-100.0); MEAN PLATELET VOLUME 8.2 fL (7.4-11.0); MONOCYTES # (AUTO) 0.6 x10^3/uL (0.3-0.8); MONOCYTES % (AUTO) 7.2 % (0.0-13.0); NEUTROPHILS # (AUTO) 6.5 x10^3/uL (2.2-4.8); NEUTROPHILS % (AUTO) 80.7 % (42.0-75.0); PLATELET COUNT 247 X10^3/uL (150.0-450.0); RED BLOOD COUNT 2.89 X10^6/uL (3.5-5.4); RED CELL DISTRIBUTION WIDTH 13.8 % (11.6-16.5)
[2019-10-26 21:33] LABS: BLOOD UREA NITROGEN 39 mg/dL (7-18); CARBON DIOXIDE 19.2 mmol/L (21-32); CHLORIDE 108 mmol/L (98-107); CREATININE 1.57 mg/dL (0.55-1.02); SODIUM 137 mmol/L (136-145); eGFR NON BLACK RACES 33 (>60)
[2019-10-26 21:38] LABS: ALANINE AMINOTRANSFERASE 39 Units/L (12-78); ALBUMIN 3.1 g/dL (3.4-5.0); ALKALINE PHOSPHATASE 148 Units/L (46-116); ASPARTATE AMINO TRANSFERASE 24 Units/L (15-37); COR CA(FOR HYPOALB) 9.7 mg/dL (8.5-10.1); TOTAL PROTEIN 6.9 g/dL (6.4-8.2)
--- NOTE | 2019-10-26 21:38 | DR.GENAD ---
HPI Time Seen Time Seen by Provider: 10/26/19 21:00 PCP Primary Care Physician: MARLON Complaint/Symptoms Chief Complaint:: PT AMBULATORY IN ED WITH C/O SHARP PAIN TO LEFT LOWER SIDE. ALSO C/O CONFUSION, CHILLS AND FEVER. PT HAS MRSA IN BACK BEING TREATED AT DR. EISENBERG OFFICE WITH ANTIBIOTICS AND PACKING FOR ABOUT A WEEK. Source History Provided: Patient and Family Member Mode of Arrival Mode of Arrival: Ambulatory Timing Onset of Chief Complaint: 10/26/19 PMH PMH Past Medical History: Yes Past Medical History: Arthritis and Hypertension Past Surgical History: Yes Surgical History: Appendectomy, Cholecystectomy, Hysterectomy and Other Family History History of Family Medical Conditions: Yes Family Medical History: Hypertension Social History Does patient currently use any type of tobacco product: No Have you used tobacco products in the last 12 months: No Type of Tobacco Use: None Does any household member use tobacco: No Alcohol Use: None Do you use any recreational Drugs:: No Lives With: Spouse Lives Where: Home infectious screening In the last 2 months have you had wt loss of >10#?: NO Have you had fever, night sweats or hemotysis?: No Have you traveled outside the country in the last 6 months?: No Isolation: Standard PE Vital Signs Vitals: Temperature 98.9 F Pulse Rate [Left Apical] 87 Pulse Rate 68 Respiratory Rate 14 Blood Pressure [Left Arm] 125/56 Blood Pressure 143/65 O2 Sat by Pulse Oximetry 97 General Limitations: Altered Mental Status Head Head Exam: Normal Inspection Eyes Eye exam: Normal Appearance ENT ENT Exam: Normal Exam Neck Neck Exam: Normal Inspection and Full ROM; negative Tenderness and Meningismus Chest Chest Inspection: Normal Inspection Respiratory Respiratory Exam: Normal Lung Sounds Bilat Cardiovascular Cardiovascular Exam: Regular Rate Abdominal Exam Abdominal Exam: Normal Inspection, Normal Bowel Sounds and Soft; negative Distention and Tenderness Extremities Extremities Exam: Normal Inspection Back Back Exam: (L) CVA Tenderness; negative Paraspinal Tenderness, Vertebral Tenderness and Rashes Neurologic Neurological Exam: Alert; negative Oriented X3 Skin Skin Exam: Warm, Dry and Other (lesion posterior thoracic s/p I and D no spreading erythema) MDM Differential Diagnosis Differential Diagnosis: Renal colic , pylonephritis, UTI, COURSE Treatment Treatment: Pt5. states she feels better and is resting comfortably on the cart.22:25 will obtain an EKG secondary to the hyperkalemia. Reevaluation 1st: Improved ROR Labs Reviewed Laboratory Results Reviewed?: Yes Result Diagrams: 10/26/19 21:17 10/26/19 23:23 Laboratory: WBC 8.0 X10^3/uL (3.6-10.0) 10/26/19 21:17 RBC 2.89 X10^6/uL (3.5-5.4) L 10/26/19 21:17 Hgb 8.8 g/dL (12.0-16.0) L 10/26/19 21:17 Hct 26.9 % (36.0-47.0) L 10/26/19 21:17 MCV 93.1 fL (80.0-100.0) 10/26/19 21:17 MCH 30.4 pg (27.0-34.0) 10/26/19 21:17 MCHC 32.7 g/dL (33.0-35.0) L 10/26/19 21:17 RDW 13.8 % (11.6-16.5) 10/26/19 21:17 Plt Count 247 X10^3/uL (150.0-450.0) 10/26/19 21:17 MPV 8.2 fL (7.4-11.0) 10/26/19 21:17 Neut % (Auto) 80.7 % (42.0-75.0) H 10/26/19 21:17 Lymph % (Auto) 10.4 % (21.0-51.0) L 10/26/19 21:17 [place] % (Auto) 7.2 % (0.0-13.0) 10/26/19 21:17 Eos % (Auto) 1.4 % (0.9-2.9) 10/26/19 21:17 Baso % (Auto) 0.3 % (0.2-1.0) 10/26/19 21:17 Neut # (Auto) 6.5 x10^3/uL (2.2-4.8) H 10/26/19 21:17 Lymph # (Auto) 0.8 X10^3/uL (1.3-2.9) L 10/26/19 21:17 [place] # (Auto) 0.6 x10^3/uL (0.3-0.8) 10/26/19 21:17 Eos # (Auto) 0.1 x10^3/uL (0.0-0.2) 10/26/19 21:17 Baso # (Auto) 0.0 X10^3/uL (0.0-0.1) 10/26/19 21:17 Absolute Nucleated RBC 0.0 /100WBC 10/26/19 21:17 Sodium 138 mmol/L (136-145) 10/26/19 23:23 Corrected Sodium TNP 10/26/19 23:23 Potassium 5.3 mmol/L (3.5-5.1) H 10/26/19 23:23 Chloride 111 mmol/L (98-107) H 10/26/19 23:23 Carbon Dioxide 16.7 mmol/L (21-32) L 10/26/19 23:23 BUN 36 mg/dL (7-18) H 10/26/19 23:23 Creatinine 1.57 mg/dL (0.55-1.02) H 10/26/19 23:23 Est GFR (MDRD) Af Amer 40 (>60) L 10/26/19 23:23 Est GFR (MDRD) Non-Af 33 (>60) L 10/26/19 23:23 Glucose 87 mg/dL (65-99) 10/26/19 23:23 Lactic Acid 0.4 mmol/L (0.4-2.0) 10/26/19 21:17 Calcium 8.2 mg/dL (8.5-10.1) L 10/26/19 23:23 Corrected Calcium 9.7 mg/dL (8.5-10.1) 10/26/19 21:17 Total Bilirubin 0.20 mg/dL (0.2-1.0) 10/26/19 21:17 AST 24 Units/L (15-37) 10/26/19 21:17 ALT 39 Units/L (12-78) 10/26/19 21:17 Alkaline Phosphatase 148 Units/L (46-116) H 10/26/19 21:17 Total Protein 6.9 g/dL (6.4-8.2) 10/26/19 21:17 Albumin 3.1 g/dL (3.4-5.0) L 10/26/19 21:17 Globulin 3.8 g/dL (2.5-4.5) 10/26/19 21:17 Albumin/Globulin Ratio 0.8 Ratio (1.1-2.1) L 10/26/19 21:17 Specimen Type Clean catch urine 10/26/19 21:00 Urine Color Yellow (YELLOW) 10/26/19 21:00 Urine Appearance Clear (CLEAR) 10/26/19 21:00 Urine pH 5.0 (5.0 - 8.0) 10/26/19 21:00 Ur Specific [place] 1.015 (1.000-1.030) 10/26/19 21:00 Urine Protein 1+ (NEGATIVE) 10/26/19 21:00 Urine Glucose (UA) Negative (NEGATIVE) 10/26/19 21: Urine Ketones Negative (NEGATIVE) 10/26/19 21: Urine Occult Blood 1+ (NEGATIVE) 10/26/19 21:00 Urine Nitrite Negative (NEGATIVE) 10/26/19 21:00 Urine Bilirubin Negative (NEGATIVE) 10/26/19 21:00 Urine Urobilinogen Normal (NORMAL) 10/26/19 21:00 Ur Leukocyte Esterase Negative (NEGATIVE) 10/26/19 21:00 Urine RBC 0-2 /HPF (0-3) 10/26/19 21:00 Urine WBC 0-2 /HPF (0-5) 10/26/19 21:00 Ur Squamous Epith Cells Negative /HPF (NEGATIVE) 10/26/19 21:00 Urine Bacteria Negative /HPF (NEGATIVE) 10/26/19 21:00 Ur Culture Indicated? No/not indicated 10/26/19 21:00 Other Results Comments: HISTORY PT AMBULATORY IN ED WITH C/O SHARP PAIN TO LEFT LOWER SIDE STUDY CHEST, PA/LAT ADULT COMPARISON None FINDINGS The trachea is midline. The cardiac silhouette is unremarkable . The lungs are clear without focal infiltrate or effusion. The bony thorax is unremarkable. IMPRESSION No acute cardiopulmonary disease. Electronically signed by: JACKELINE REDDING (Oct 26, 2019 21:42:55) HISTORY:Sharp left-sided abdominal pain Study: CT abdomen and pelvis without contrast Comparison:None Technique: Multiple axial images of the abdomen and pelvis were obtained without IV contrast. Oral contrast was not administered. Dose reduction techniques including Automated Exposure Control (AEC) and adjustment of mA and kV were utilized. FINDINGS: Please note evaluation is limited without IV contrast. The lung bases are clear. The liver, spleen, pancreas, and adrenal glands are unremarkable in their unenhanced appearance. Gallbladder is removed. No renal calculi or obstructive uropathy. Parapelvic cysts are present. Ureters are normal. No free intraperitoneal air. 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 No evidence of intestinal obstruction. Large volume of retained stool is present in the colon. Numerous colonic diverticula are present the descending and sigmoid colon without CT evidence of acute inflammation. Multilevel disc disease, spondylosis and scoliosis of the thoracolumbar spine is present. There is calcified plaque throughout the aorta and branch vessels. No pathologically enlarged lymph nodes are identified. Uterus is removed. Urinary bladder is unremarkable. Previous ventral hernia repair is noted. IMPRESSION ABDOMEN/PELVIS: 1. Large amount of retained stool throughout the colon. Colonic diverticulosis of the distal colon without evidence of acute inflammation. 2. Postsurgical changes and additional chronic findings as described. Electronically signed by: MISTY TOBAR (Oct 26, 2019 21:55:04) EKG Rate: 85 [place]: Normal Rhythm: PVCs Block: None Hypertrophy: None ST: Normal (No t wave changes consistent with hyperkalemia) Opioid Opioid Risk Tool Age (Douglas box if 16-45): No History of Preadolescent Sexual Abuse: No Total: 0 Total Score Risk Category: Low Risk Copyright: Parker VICTORIA predicting aberrant behaviors Diagnosis Discharge Problem: Acute left flank pain, Acute hyperkalemia, Acute febrile illness, Chronic anemia, Metabolic acidosis, increased anion gap, Frequent PVCs Chronic kidney disease (CKD) Qualifiers: Chronic kidney disease stage: stage 3 (moderate) Qualified Code(s): N18.3 - Chronic kidney disease, stage 3 (moderate) Constipation Qualifiers: Constipation type: unspecified constipation type Qualified Code(s): K59.00 - Constipation, unspecified Instructions Forms: Excuse From Work Patient Portal ADDITIONAL NOTES Additional Notes Additional Notes: I cannot find a cause for the patients L flank pain, hyperkalemia, fever, and anion gap. Pt. also with frequent PVC's. Will need to admit to observe patient to see what course the patient takes.
--- NOTE | 2019-10-26 21:44 | RAD ---
HISTORYPT AMBULATORY IN ED WITH C/O SHARP PAIN TO LEFT LOWER SIDESTUDYCHEST, PA/LAT ADULTCOMPARISONNoneFINDINGSThe trachea is midline. The cardiac silhouette is unremarkable . The lungs are clear without focal infiltrate or effusion. The bony thorax is unremarkable.IMPRESSIONNo acute cardiopulmonary disease.Electronically signed by: JACKELINE REDDING (Oct 26, 2019 21:42:55)
[2019-10-26 21:56] LABS: LACTIC ACID 0.4 mmol/L (0.4-2.0)
--- NOTE | 2019-10-26 21:56 | CT ---
HISTORY:Sharp left-sided abdominal painStudy: CT abdomen and pelvis without contrastComparison:NoneTechnique: Multiple axial images of the abdomen and pelvis were obtained without IV contrast. Oral contrast was not administered. Dose reduction techniques including Automated Exposure Control (AEC) and adjustment of mA and kV were utilized.FINDINGS:Please note evaluation is limited without IV contrast.The lung bases are clear. The liver, spleen, pancreas, and adrenal glands are unremarkable in their unenhanced appearance. Gallbladder is removed. No renal calculi or obstructive uropathy. Parapelvic cysts are present. Ureters are normal.No free intraperitoneal air. 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 No evidence of intestinal obstruction. Large volume of retained stool is present in the colon. Numerous colonic diverticula are present the descending and sigmoid colon without CT evidence of acute inflammation.Multilevel disc disease, spondylosis and scoliosis of the thoracolumbar spine is present. There is calcified plaque throughout the aorta and branch vessels. No pathologically enlarged lymph nodes are identified. Uterus is removed. Urinary bladder is unremarkable. Previous ventral hernia repair is noted.IMPRESSION ABDOMEN/PELVIS:1. Large amount of retained stool throughout the colon. Colonic diverticulosis of the distal colon without evidence of acute inflammation.2. Postsurgical changes and additional chronic findings as described.Electronically signed by: MISTY TOBAR (Oct 26, 2019 21:55:04)
[2019-10-26] MEDS ORDERED: D50W ABBOJECT SYR IV ONE (22:30)
[2019-10-26] MEDS ORDERED: HumuLIN R IV ONE (22:31)
[2019-10-26] MEDS ORDERED: D50W ABBOJECT SYR ONE (22:34)
[2019-10-26] MEDS ORDERED: HumuLIN R ONE (22:35)
[2019-10-26 23:36] LABS: BLOOD UREA NITROGEN 36 mg/dL (7-18); CALCIUM 8.2 mg/dL (8.5-10.1); CARBON DIOXIDE 16.7 mmol/L (21-32); CHLORIDE 111 mmol/L (98-107); CREATININE 1.57 mg/dL (0.55-1.02); SODIUM 138 mmol/L (136-145); eGFR NON BLACK RACES 33 (>60)
[2019-10-27] MEDS ORDERED: CEFTRIAXONE IV ONE (00:08)
[2019-10-27] MEDS ORDERED: ROCEPHIN VIAL 1 GRAM ONE (00:22)
[2019-10-27] MEDS ORDERED: NS 1000 ML 1,000 ML ONE (00:22)
[2019-10-27] MEDS ORDERED: NS 100 ML IV + SPIKE MINIBAG* 100 ML IV ONE (00:22)
[2019-10-27] MEDS ORDERED: NS 500 ML IV 500 ML IV ONE (00:27)
[2019-10-27] MEDS ORDERED: NS 1000 ML 1,000 ML IV ONE (00:29)
[2019-10-27 00:40] LABS: ABG BASE EXCESS -9.2 mmol/L (-2.0-2.0)
[2019-10-27 00:42] LABS: ABG ALLEN TEST P; ABG HCO3 16.2 mmol/L (22-26)
--- NOTE | 2019-10-27 01:46 | DR.GENAD ---
HPI Time Seen Time Seen by Provider: 10/26/19 21:00 PCP Primary Care Physician: MARLON Complaint/Symptoms Chief Complaint:: PT AMBULATORY IN ED WITH C/O SHARP PAIN TO LEFT LOWER SIDE. ALSO C/O CONFUSION, CHILLS AND FEVER. PT HAS MRSA IN BACK BEING TREATED AT DR. EISENBERG OFFICE WITH ANTIBIOTICS AND PACKING FOR ABOUT A WEEK. Source History Provided: Patient and Family Member Mode of Arrival Mode of Arrival: Ambulatory Timing Onset of Chief Complaint: 10/26/19 PMH PMH Past Medical History: Yes Past Medical History: Arthritis and Hypertension Past Surgical History: Yes Surgical History: Appendectomy, Cholecystectomy, Hysterectomy and Other Family History History of Family Medical Conditions: Yes Family Medical History: Hypertension Social History Does patient currently use any type of tobacco product: No Have you used tobacco products in the last 12 months: No Type of Tobacco Use: None Does any household member use tobacco: No Alcohol Use: None Do you use any recreational Drugs:: No Lives With: Spouse Lives Where: Home infectious screening In the last 2 months have you had wt loss of >10#?: NO Have you had fever, night sweats or hemotysis?: No Have you traveled outside the country in the last 6 months?: No Isolation: Standard PE Vital Signs Vitals: Temperature 98.9 F Pulse Rate [Left Apical] 87 Pulse Rate 68 Respiratory Rate 14 Blood Pressure [Left Arm] 125/56 Blood Pressure 143/65 O2 Sat by Pulse Oximetry 97 ROR Labs Reviewed Result Diagrams: 10/26/19 21:17 10/26/19 23:23 Laboratory: WBC 8.0 X10^3/uL (3.6-10.0) 10/26/19 21:17 RBC 2.89 X10^6/uL (3.5-5.4) L 10/26/19 21:17 Hgb 8.8 g/dL (12.0-16.0) L 10/26/19 21:17 Hct 26.9 % (36.0-47.0) L 10/26/19 21:17 MCV 93.1 fL (80.0-100.0) 10/26/19 21:17 MCH 30.4 pg (27.0-34.0) 10/26/19 21:17 MCHC 32.7 g/dL (33.0-35.0) L 10/26/19 21:17 RDW 13.8 % (11.6-16.5) 10/26/19 21:17 Plt Count 247 X10^3/uL (150.0-450.0) 10/26/19 21:17 MPV 8.2 fL (7.4-11.0) 10/26/19 21:17 Neut % (Auto) 80.7 % (42.0-75.0) H 10/26/19 21:17 Lymph % (Auto) 10.4 % (21.0-51.0) L 10/26/19 21:17 [place] % (Auto) 7.2 % (0.0-13.0) 10/26/19 21:17 Eos % (Auto) 1.4 % (0.9-2.9) 10/26/19 21:17 Baso % (Auto) 0.3 % (0.2-1.0) 10/26/19 21:17 Neut # (Auto) 6.5 x10^3/uL (2.2-4.8) H 10/26/19 21:17 Lymph # (Auto) 0.8 X10^3/uL (1.3-2.9) L 10/26/19 21:17 [place] # (Auto) 0.6 x10^3/uL (0.3-0.8) 10/26/19 21:17 Eos # (Auto) 0.1 x10^3/uL (0.0-0.2) 10/26/19 21:17 Baso # (Auto) 0.0 X10^3/uL (0.0-0.1) 10/26/19 21:17 Absolute Nucleated RBC 0.0 /100WBC 10/26/19 21:17 Sample Site Rr 10/27/19 00:37 ABG pH 7.300 (7.35-7.45) L 10/27/19 00:37 ABG pCO2 33.0 mmHg (35.0-45.0) L 10/27/19 00:37 ABG pO2 83.0 mmHg (80.0-100.0) 10/27/19 00:37 ABG HCO3 16.2 mmol/L (22-26) L* 10/27/19 00:37 ABG O2 Saturation 95.0 % (90-100) 10/27/19 00:37 ABG Base Excess -9.2 mmol/L (-2.0-2.0) L 10/27/19 00:37 Asim Test P 10/27/19 00:37 A-a Gradient 75.0 mmHg 10/27/19 00:37 FiO2 28.0 10/27/19 00:37 Blood Gas Comments Sergio well leh 10/27/19 00:37 Sodium 138 mmol/L (136-145) 10/26/19 23:23 Corrected Sodium TNP 10/26/19 23:23 Potassium 5.3 mmol/L (3.5-5.1) H 10/26/19 23:23 Chloride 111 mmol/L (98-107) H 10/26/19 23:23 Carbon Dioxide 16.7 mmol/L (21-32) L 10/26/19 23:23 BUN 36 mg/dL (7-18) H 10/26/19 23:23 Creatinine 1.57 mg/dL (0.55-1.02) H 10/26/19 23:23 Est GFR (MDRD) Af Amer 40 (>60) L 10/26/19 23:23 Est GFR (MDRD) Non-Af 33 (>60) L 10/26/19 23:23 Glucose 87 mg/dL (65-99) 10/26/19 23:23 Lactic Acid 0.4 mmol/L (0.4-2.0) 10/26/19 21:17 Calcium 8.2 mg/dL (8.5-10.1) L 10/26/19 23:23 Corrected Calcium 9.7 mg/dL (8.5-10.1) 10/26/19 21:17 Total Bilirubin 0.20 mg/dL (0.2-1.0) 10/26/19 21:17 AST 24 Units/L (15-37) 10/26/19 21:17 ALT 39 Units/L (12-78) 10/26/19 21:17 Alkaline Phosphatase 148 Units/L (46-116) H 10/26/19 21:17 Creatine Kinase 195 Units/L (26-192) H 10/26/19 23:23 Troponin I < 0.02 ng/mL (0-1.5) 10/26/19 23:23 Total Protein 6.9 g/dL (6.4-8.2) 10/26/19 21:17 Albumin 3.1 g/dL (3.4-5.0) L 10/26/19 21:17 Globulin 3.8 g/dL (2.5-4.5) 10/26/19 21:17 Albumin/Globulin Ratio 0.8 Ratio (1.1-2.1) L 10/26/19 21:17 Specimen Type Clean catch urine 10/26/19 21:00 Urine Color Yellow (YELLOW) 10/26/19 21:00 Urine Appearance Clear (CLEAR) 10/26/19 21:00 Urine pH 5.0 (5.0 - 8.0) 10/26/19 21:00 Ur Specific [place] 1.015 (1.000-1.030) 10/26/19 21:00 Urine Protein 1+ (NEGATIVE) 10/26/19 21:00 Urine Glucose (UA) Negative (NEGATIVE) 10/26/19 21:00 Urine Ketones Negative (NEGATIVE) 10/26/19 21:00 Urine Occult Blood 1+ (NEGATIVE) 10/26/19 21:00 Urine Nitrite Negative (NEGATIVE) 10/26/19 21:00 Urine Bilirubin Negative (NEGATIVE) 10/26/19 21:00 Urine Urobilinogen Normal (NORMAL) 10/26/19 21:00 Ur Leukocyte Esterase Negative (NEGATIVE) 10/26/19 21:00 Urine RBC 0-2 /HPF (0-3) 10/26/19 21:00 Urine WBC 0-2 /HPF (0-5) 10/26/19 21:00 Ur Squamous Epith Cells Negative /HPF (NEGATIVE) 10/26/19 21:00 Urine Bacteria Negative /HPF (NEGATIVE) 10/26/19 21:00 Ur Culture Indicated? No/not indicated 10/26/19 21:00 Opioid Opioid Risk Tool Age (Douglas box if 16-45): No History of Preadolescent Sexual Abuse: No Total: 0 Total Score Risk Category: Low Risk Copyright: Parker VICTORIA predicting aberrant behaviors Diagnosis Discharge Problem: Acute left flank pain, Acute hyperkalemia, Acute febrile illness, Chronic anemia, Metabolic acidosis, increased anion gap, Frequent PVCs Chronic kidney disease (CKD) Qualifiers: Chronic kidney disease stage: stage 3 (moderate) Qualified Code(s): N18.3 - Chronic kidney disease, stage 3 (moderate) Constipation Qualifiers: Constipation type: unspecified constipation type Qualified Code(s): K59.00 - Constipation, unspecified Instructions Forms: Excuse From Work Patient Portal
[2019-10-27] MEDS ORDERED: ZOFRAN INJ 4 MG VIAL IVP PRN (02:44)
[2019-10-27 02:48] LABS: CKMB % 3.3 % (<4); CREATINE KINASE 169 Units/L (26-192); TROPONIN I < 0.02 ng/mL (0-1.5)
[2019-10-27 02:51] LABS: CREATINE KINASE MB 5.6 ng/mL (0-4.0)
[2019-10-27] MEDS: NS 1000 ML 1,000 ML IV SCH ×3 (03:08→20:44)
[2019-10-27] MEDS ORDERED: MORPHINE SULFATE INJ 2 MG INJ ONE (03:08)
[2019-10-27] MEDS: MORPHINE SULFATE INJ 2 MG INJ IVP PRN ×2 (03:29→09:08)
[2019-10-27 05:07] LABS: BASOPHILS % (AUTO) 0.2 % (0.2-1.0); EOSINOPHILS % (AUTO) 0.6 % (0.9-2.9); HEMATOCRIT 23.6 % (36.0-47.0); HEMOGLOBIN 7.7 g/dL (12.0-16.0); LYMPHOCYTES # (AUTO) 1.4 X10^3/uL (1.3-2.9); LYMPHOCYTES % (AUTO) 19.2 % (21.0-51.0); MEAN CORPUSCULAR HEMOGLOBIN 30.6 pg (27.0-34.0); MEAN CORPUSCULAR HGB CONC 32.6 g/dL (33.0-35.0); MEAN CORPUSCULAR VOLUME 93.8 fL (80.0-100.0); MEAN PLATELET VOLUME 8.3 fL (7.4-11.0); MONOCYTES # (AUTO) 0.8 x10^3/uL (0.3-0.8); MONOCYTES % (AUTO) 11.1 % (0.0-13.0); NEUTROPHILS % (AUTO) 68.9 % (42.0-75.0); PLATELET COUNT 211 X10^3/uL (150.0-450.0); RED BLOOD COUNT 2.51 X10^6/uL (3.5-5.4); WHITE BLOOD COUNT 7.3 X10^3/uL (3.6-10.0)
[2019-10-27 05:17] LABS: ALANINE AMINOTRANSFERASE 30 Units/L (12-78); ALBUMIN 2.5 g/dL (3.4-5.0); ALKALINE PHOSPHATASE 116 Units/L (46-116); ASPARTATE AMINO TRANSFERASE 18 Units/L (15-37); BLOOD UREA NITROGEN 36 mg/dL (7-18); CALCIUM 8.1 mg/dL (8.5-10.1); CARBON DIOXIDE 17.7 mmol/L (21-32); CHLORIDE 112 mmol/L (98-107); COR CA(FOR HYPOALB) 9.3 mg/dL (8.5-10.1); CREATININE 1.35 mg/dL (0.55-1.02); SODIUM 139 mmol/L (136-145); TOTAL PROTEIN 5.8 g/dL (6.4-8.2); eGFR NON BLACK RACES 40 (>60)
[2019-10-27 05:39] LABS: PLATELET MORPHOLOGY COMMENT NORMAL (NORMAL)
[2019-10-27] MEDS ORDERED: TYLENOL 325 MG TAB PO ONE (07:13)
[2019-10-27] MEDS: TYLENOL 325 MG TAB PO PRN (08:30)
[2019-10-27] MEDS: MILK OF MAGNESIA PO SCH ×4 (09:07→21:03)
[2019-10-27] MEDS: PEPCID 20 MG IV PREMIX* 10 MG/25 ML BAG IV SCH (09:07)
[2019-10-27] MEDS: COLACE CAP 100 MG PO SCH ×2 (09:07→21:01)
[2019-10-27 09:19] LABS: CKMB % 3.5 % (<4); TROPONIN I 0.09 ng/mL (0-1.5)
[2019-10-27 09:22] LABS: CREATINE KINASE MB 4.9 ng/mL (0-4.0)
[2019-10-27] MEDS ORDERED: METAXALONE PO PRN (10:44)
[2019-10-27] MEDS: MIRALAX POWDER (1 DOSE 17 G) PO SCH (11:23)
[2019-10-27] MEDS: PROTONIX TAB 40 MG PO SCH (11:24)
[2019-10-27] MEDS: CARAFATE ORAL SUSP PO SCH ×2 (11:24→21:01)
[2019-10-27] MEDS: BACTRIM DS TAB PO SCH ×2 (11:24→21:00)
[2019-10-27] MEDS: ULTRAM PO SCH ×2 (11:25→21:01)
[2019-10-27 14:38] LABS: CKMB % 4.2 % (<4); TROPONIN I 0.09 ng/mL (0-1.5)
[2019-10-27 14:40] LABS: CREATINE KINASE MB 5.7 ng/mL (0-4.0)
[2019-10-27] MEDS: NORCO 7.5/325 MG TAB PO PRN (16:05)
[2019-10-27] MEDS ORDERED: SNACK - Diabetic Appropriate PO SCH (20:00)
[2019-10-27] MEDS ORDERED: NORVASC TAB 2.5 MG ONE (20:25)
[2019-10-27 20:39] LABS: CKMB % 2.9 % (<4); TROPONIN I 0.06 ng/mL (0-1.5)
[2019-10-27 20:41] LABS: CREATINE KINASE MB 5.6 ng/mL (0-4.0)
[2019-10-27] MEDS: NORVASC TAB 2.5 MG PO SCH (21:02)
[2019-10-27] MEDS: TOPROL XL PO SCH (21:02)
[2019-10-27] MEDS: CRESTOR TAB 10 MG PO SCH (21:03)
--- NOTE | 2019-10-27 21:42 | DR.H&P ---
H&P - History & Physical for Day of: H&P Date: 10/27/19 - Chief Complaint Chief Complaint: LEFT FLANK/ABDOMEN PAIN - History of Present Illness History of Present Illness: IS A 84 YEAR OLD PATIENT OF OURS. SHE PRESENTED TO THE ER WITH COMPLAINTS OF SHARP PAIN TO THE LEFT LOWER ABDOMEN/FLANK. SPOUSE REPORTED THAT PATIENT HAS BEEN CONFUSED AT TIMES AND HAS HAD FEVER AND CHILLS. SHE HAS BEEN TAKING BACTRIM DS 1 TABLET PO BID FOR FÉLIX ATMENT OF MRSA IN A WOUND TO THE LOWER BACK. SHE HAS BEEN HAVING THE PACKING IN THE WOUND CHANGED FOR THE PAST WEEK. ON ARRIVAL TO THE ER, VITALS WERE 100.9-68-22-99%-143/65. LABS WERE OBTAINED. ABNORMAL LAB VALUES INCLUDE THE FOLLOWING: RBC 2.89, HGB 8.8, HCT 26.9, POTASSIUM 6.3, CHLORIDE 108, CARBON DIOXIDE 19.2, BUN 39, CREATININE 1.57, GLUCOSE 101, ALK PHOS 148, ALBUMIN 3.1, CREATINE KINASE 195, CK-MB 5.6. TROPONIN IS <0.02. ABG WAS OBTAINED AND REVEALED: PH 7.300, PC02 33.0, P02 83.0, HC03 16.2, 02 SATURATION 95.0, BASE EXCESS -9.2. BLOOD CULTURES ARE PENDING. A CHEST XRAY WAS OBTAINED AND REVEALED: No acute cardiopulmonary disease. AN ABDOMEN/PELVIS CT WITHOUT CONTRAST WAS OBTAINED AND REVEALED: 1. Large amount of retained stool throughout the colon. Colonic diverticulosis of the distal colon without evidence of acute inflammation. 2. Postsurgical changes and additional chronic findings as described. EKG REVEALED: SINUS RHYTHM WITH HR 85. SHE WAS GIVEN A NORMAL SALINE BOLUS, ROCEPHIN 1G IV, HUMULIN R 10 UNITS, D5W IV X 1 DOSE, MORPHINE 1MG IV X 1, AND TORADOL 15MG IV X 1. POTASSIUM DECREASED TO 5.3. SHE WAS ADMITTED FOR FURTHER EVALUATION AND TREATMENT OF HYPERKALEMIA AND METABOLIC ACIDOSIS. SHE WAS STARTED ON NORMAL SALINE AT 100 ML/HR, IV PEPCID, PROTONIX, MORPHINE 1MG IV Q4H PRN, ZOFRAN 4MG IV Q6H PRN, MILK OF MAGNESIA, COLACE, AND MIRALAX. OTHERWISE, WE WILL FOLLOW UP WITH AM LABS AND CONTINUE TO MONITOR. - Past Medical History Past Medical History: Hypertension, Arthritis - Past Surgical History Surgical History: Appendectomy, Cholecystectomy, Hysterectomy, Other - Family History Family Medical History: Hypertension - Social History Does patient currently use any type of tobacco product: No Have you used tobacco products in the last 12 months: No Type of Tobacco Use: None Does any household member use tobacco: No Alcohol Use: None Drug Use: None Prescription drug monitoring program results: PDMP reviewed and no concerns identified - Medications Home Medications: No Known Drug Allergies Allergy (Verified 02/27/18 14:36) CONTINUE taking the following medications amlodipine 2.5 mg PO HS 10/27/19 [History] cyanocobalamin (vitamin B-12) 1,000 mcg IM WEEKLY 10/27/19 [History] hydrochlorothiazide 12.5 mg PO DAILY 10/27/19 [History] hydrocodone-acetaminophen 1 tab PO QID PRN 10/27/19 [History] metoprolol succinate 25 mg PO HS 10/27/19 [History] pantoprazole 40 mg PO DAILY 10/27/19 [History] pregabalin 100 mg PO HS 10/27/19 [History] rosuvastatin 5 mg PO HS 10/27/19 [History] sulfamethoxazole-trimethoprim 1 tab PO BID 10/27/19 [History] - Review of Systems Constitutional: See HPI, Fever, Chills, Weakness Eyes: No Symptoms Reported ENT: No Symptoms Reported Respiratory: No Symptoms Reported Cardiovascular: No Symptoms Reported Gastrointestinal: Nausea, Abdominal Pain Genitourinary: No Symptoms Reported Musculoskeletal: Back Pain Skin: Wound (upper medical back approximately 2x2x1.5 with yellow slough ) Neurological: Weakness - Physical Exam Vital Signs: Temperature 99.4 F Pulse Rate [Left Apical] 81 Pulse Rate 72 Respiratory Rate 20 Blood Pressure [Left Arm] 139/61 Blood Pressure 137/64 O2 Sat by Pulse Oximetry 100 Oriented: Normal Eyes: Normal Ear: Normal Nose: Normal Throat: Normal Respiratory: Diminished Throughout Cardiovascular: Normal : Normal Auscultation: Bowel Sounds: Normal Palpation: Normal Tenderness: LUQ Skin: Wound (upper medical back approximately 2x2x1.5 with yellow slough ) Musculoskeletal: Back:Midline Psychiatric: Normal Mood Description: Calm Affect: Angry Speech Pattern: Clear - Assessment/Plan (1) Acute hyperkalemia Status: Acute Plan: admit, iv fluids, continue to monitor (2) Infection of wound due to methicillin resistant Staphylococcus aureus (MRSA) Status: Acute Plan: bactrim ds 1 tablet po bid, continue to monitor (3) Chronic anemia Status: Acute Plan: iv pepcid, iv protonix, monitor labs (4) Constipation Qualifiers: Constipation type: unspecified constipation type Qualified Code(s): K59.00 - Constipation, unspecified Status: Acute Plan: milk of magnesia, colace, miralax, continue to monitor (5) Metabolic acidosis, increased anion gap Status: Acute - Allergies Allergies/Adverse Reactions: Allergies Allergy/AdvReac Type Severity Reaction Status Date / Time No Known Drug Allergies Allergy Verified 02/27/18 14:36
[2019-10-28 02:10] LABS: CKMB % 4.3 % (<4); TROPONIN I 0.06 ng/mL (0-1.5)
[2019-10-28 02:12] LABS: CREATINE KINASE MB 4.4 ng/mL (0-4.0)
[2019-10-28] MEDS: NS 1000 ML 1,000 ML IV SCH ×3 (03:24→20:41)
[2019-10-28 05:24] LABS: BASOPHILS % (AUTO) 0.3 % (0.2-1.0); EOSINOPHILS # (AUTO) 0.3 x10^3/uL (0.0-0.2); EOSINOPHILS % (AUTO) 5.1 % (0.9-2.9); HEMATOCRIT 20.9 % (36.0-47.0); LYMPHOCYTES # (AUTO) 1.7 X10^3/uL (1.3-2.9); LYMPHOCYTES % (AUTO) 34.2 % (21.0-51.0); MEAN CORPUSCULAR HEMOGLOBIN 30.8 pg (27.0-34.0); MEAN CORPUSCULAR HGB CONC 32.9 g/dL (33.0-35.0); MEAN CORPUSCULAR VOLUME 93.4 fL (80.0-100.0); MEAN PLATELET VOLUME 8.4 fL (7.4-11.0); MONOCYTES # (AUTO) 0.7 x10^3/uL (0.3-0.8); MONOCYTES % (AUTO) 14.8 % (0.0-13.0); NEUTROPHILS # (AUTO) 2.2 x10^3/uL (2.2-4.8); NEUTROPHILS % (AUTO) 45.6 % (42.0-75.0); PLATELET COUNT 206 X10^3/uL (150.0-450.0); RED BLOOD COUNT 2.24 X10^6/uL (3.5-5.4); WHITE BLOOD COUNT 4.9 X10^3/uL (3.6-10.0)
[2019-10-28 05:42] LABS: ALANINE AMINOTRANSFERASE 24 Units/L (12-78); ALBUMIN 2.1 g/dL (3.4-5.0); ALKALINE PHOSPHATASE 95 Units/L (46-116); ASPARTATE AMINO TRANSFERASE 13 Units/L (15-37); BLOOD UREA NITROGEN 25 mg/dL (7-18); CHLORIDE 114 mmol/L (98-107); COR CA(FOR HYPOALB) 9.5 mg/dL (8.5-10.1); SODIUM 141 mmol/L (136-145); TOTAL PROTEIN 5.4 g/dL (6.4-8.2); eGFR NON BLACK RACES 50 (>60)
[2019-10-28 05:47] LABS: HEMOGLOBIN 6.9 g/dL (12.0-16.0)
[2019-10-28 08:32] LABS: CKMB % 3.7 % (<4); CREATINE KINASE MB 3.4 ng/mL (0-4.0); TROPONIN I 0.04 ng/mL (0-1.5)
[2019-10-28] MEDS ORDERED: ZESTRIL TAB 20 MG ONE (08:45)
[2019-10-28] MEDS: PEPCID 20 MG IV PREMIX* 10 MG/25 ML BAG IV SCH (09:12)
[2019-10-28] MEDS: BACTRIM DS TAB PO SCH ×2 (09:12→20:39)
[2019-10-28] MEDS: ZESTRIL TAB 20 MG PO SCH (09:12)
[2019-10-28] MEDS: ULTRAM PO SCH ×2 (09:12→20:46)
[2019-10-28] MEDS: CARAFATE ORAL SUSP PO SCH ×2 (09:13→20:48)
[2019-10-28] MEDS: PROTONIX TAB 40 MG PO SCH (09:13)
[2019-10-28] MEDS: COLACE CAP 100 MG PO SCH ×2 (09:15→20:40)
[2019-10-28] MEDS: MIRALAX POWDER (1 DOSE 17 G) PO SCH (09:16)
[2019-10-28] MEDS: MILK OF MAGNESIA PO SCH ×4 (09:16→20:47)
[2019-10-28] MEDS ORDERED: BENADRYL INJ 50 MG VIAL IVP PRN (09:43)
[2019-10-28] MEDS ORDERED: NS 500 ML IV 500 ML IV ONE (09:43)
[2019-10-28] MEDS: LEVSIN/MAALOX/LIDOC VISC PO SCH ×5 (11:00→23:03)
[2019-10-28] MEDS: NORCO 7.5/325 MG TAB PO PRN (19:30)
[2019-10-28] MEDS ORDERED: NORVASC TAB 2.5 MG ONE (20:34)
[2019-10-28] MEDS: CRESTOR TAB 10 MG PO SCH (20:41)
[2019-10-28] MEDS: NORVASC TAB 2.5 MG PO SCH (20:47)
[2019-10-28] MEDS: TOPROL XL PO SCH (20:47)
--- NOTE | 2019-10-28 21:10 | PCM.PROG ---
Progress Note - Progress Note for Day of Date of Exam: 10/28/19 - Subjective Subjective: IS BEING TREATED FOR ACUTE HYPERKALEMIA, ANEMIA, CONSTIPATION, MRSA TO WOUND ON BACK, AND METABOLIC ACIDOSIS. TODAY, SHE IS ALERT AND ORIENTED, LYING IN BED ON MORNING ROUNDS. SHE REPORTS WEAKNESS AND BACK PAIN TODAY, BUT DENIES ABDOMINAL PAIN OR FLANK PAIN THIS MORNING. SHE ADMITS TO SEVERAL BOWEL MOVEMENTS SINCE YESTERDAY. ON EXAMINATION, HEART IS REGULAR IN RATE AND RHYTHM. BILATERAL LUNGS ARE NOTED WITH DIMINISHED LUNG SOUNDS THROUGHOUT. ABDOMEN IS ROUND, SOFT, AND NON-TENDER WITH NORMAL BOWEL SOUNDS NOTED IN ALL QUADRANTS. WOUND TO UPPER MEDIAL BACK IS NOTED WITH A SMALL AMOUNT OF PURULENT DRAINAGE. HER VITALS THIS MORNING ARE: 99.1-84-20-96%-152/67. LABS WERE OBTAINED. ABNORMAL LAB VALUES INCLUDE THE FOLLOWING: RBC 2.24, HGB 6.9, HCT 20.9, POTASSIUM 5.5, CHLORIDE 114, CARBON DIOXIDE 18.0, BUN 25, CREATININE 1.10, CALCIUM 8.0, TOTAL BILI 0.10, AST 13, TOTAL PROTEIN 5.4, ALBUMIN 2.1. BLOOD CULTURES ARE PENDING. NO CHANGES NOTED TO EKGS. SHE IS CURRENTLY RECEIVING N ORMAL SALINE AT 100ML/HR, IV PEPCID, PROTONIX, MORPHINE 1MG IV Q4H PRN, ZOFRAN 4MG IV Q6H PRN, MILK OF MAGNESIA, COLACE, AND MIRALAX, AND HOME MEDICATIONS WERE RESUMED. TODAY, WE WILL TRANSFUSE 2 UNITS OF PACKED RED BLOOD CELLS. OTHERWISE, WE WILL FOLLOW UP WITH AM LABS AND CONTINUE TO MONITOR. - Past Medical Family Social History Past Med/Fam/Surg Hx: No changes since H&P Allergies: Allergies No Known Drug Allergies Allergy (Verified 02/27/18 14:36) - Review of Systems ROS: No change since H&P - Vital Signs and I&O's Vital Signs: Temperature 99.5 F Pulse Rate [Left Apical] 81 Pulse Rate 82 Respiratory Rate 18 Blood Pressure [Left Arm] 139/61 Blood Pressure 148/93 O2 Sat by Pulse Oximetry 97 Intake and Output: Intake & Output 10/26/19 10/27/19 10/28/19 10/29/19 11:59 11:59 11:59 11:59 Intake Total 350 / 350 1664 / 1664 608 / 608 Balance 350 / 350 1663 / 1664 608 / 608 - Physical Exam Oriented: Normal Eyes: Normal Ear: Normal Nose: Normal Throat: Normal Cardiovascular: Normal : Normal Auscultation: Bowel Sounds: Normal Palpation: Normal Tenderness: LUQ Skin: Wound (upper medial back approximately 2x2x1.5 with yellow slough ) Musculoskeletal: Back:Midline Psychiatric: Normal Mood Description: Calm Affect: Angry Speech Pattern: Clear - Laboratory and Diagnostics Result Diagrams: 10/28/19 04:24 10/28/19 04:24 Labs: 10/26/19 21:17 Blood Blood Culture - Preliminary 10/26/19 21:13 Blood Blood Culture - Preliminary Laboratory WBC 4.9 X10^3/uL (3.6-10.0) 10/28/19 04:24 RBC 2.24 X10^6/uL (3.5-5.4) L 10/28/19 04:24 Hgb 6.9 g/dL (12.0-16.0) L* 10/28/19 04:24 Hct 20.9 % (36.0-47.0) L 10/28/19 04:24 MCV 93.4 fL (80.0-100.0) 10/28/19 04:24 MCH 30.8 pg (27.0-34.0) 10/28/19 04:24 MCHC 32.9 g/dL (33.0-35.0) L 10/28/19 04:24 RDW 14.0 % (11.6-16.5) 10/28/19 04:24 Plt Count 206 X10^3/uL (150.0-450.0) 10/28/19 04:24 Plt Count Comment Adequate (ADEQUATE) 10/27/19 04:48 MPV 8.4 fL (7.4-11.0) 10/28/19 04:24 Neut % (Auto) 45.6 % (42.0-75.0) 10/28/19 04:24 Lymph % (Auto) 34.2 % (21.0-51.0) 10/28/19 04:24 [place] % (Auto) 14.8 % (0.0-13.0) H 10/28/19 04:24 Eos % (Auto) 5.1 % (0.9-2.9) H 10/28/19 04:24 Baso % (Auto) 0.3 % (0.2-1.0) 10/28/19 04:24 Neut # (Auto) 2.2 x10^3/uL (2.2-4.8) 10/28/19 04:24 Lymph # (Auto) 1.7 X10^3/uL (1.3-2.9) 10/28/19 04:24 [place] # (Auto) 0.7 x10^3/uL (0.3-0.8) 10/28/19 04:24 Eos # (Auto) 0.3 x10^3/uL (0.0-0.2) H 10/28/19 04:24 Baso # (Auto) 0.0 X10^3/uL (0.0-0.1) 10/28/19 04:24 Absolute Nucleated RBC 0.0 /100WBC 10/28/19 04:24 Plt Morphology Comment Normal (NORMAL) 10/27/19 04:48 RBC Morphology Normal (NORMAL) 10/27/19 04:48 Sample Site Rr 10/27/19 00:37 ABG pH 7.300 (7.35-7.45) L 10/27/19 00:37 ABG pCO2 33.0 mmHg (35.0-45.0) L 10/27/19 00:37 ABG pO2 83.0 mmHg (80.0-100.0) 10/27/19 00:37 ABG HCO3 16.2 mmol/L (22-26) L* 10/27/19 00:37 ABG O2 Saturation 95.0 % (90-100) 10/27/19 00:37 ABG Base Excess -9.2 mmol/L (-2.0-2.0) L 10/27/19 00:37 Asim Test P 10/27/19 00:37 A-a Gradient 75.0 mmHg 10/27/19 00:37 FiO2 28.0 10/27/19 00:37 Blood Gas Comments [facility] 10/27/19 00:37 Sodium 141 mmol/L (136-145) 10/28/19 04:24 Corrected Sodium TNP 10/28/19 04:24 Potassium 5.5 mmol/L (3.5-5.1) H 10/28/19 04:24 Chloride 114 mmol/L (98-107) H 10/28/19 04:24 Carbon Dioxide 18.0 mmol/L (21-32) L 10/28/19 04:24 BUN 25 mg/dL (7-18) H 10/28/19 04:24 Creatinine 1.10 mg/dL (0.55-1.02) H 10/28/19 04:24 Est GFR (MDRD) Af Amer > 60 (>60) 10/28/19 04:24 Est GFR (MDRD) Non-Af 50 (>60) L 10/28/19 04:24 Glucose 75 mg/dL (65-99) 10/28/19 04:24 Lactic Acid 0.4 mmol/L (0.4-2.0) 10/26/19 21:17 Calcium 8.0 mg/dL (8.5-10.1) L 10/28/19 04:24 Corrected Calcium 9.5 mg/dL (8.5-10.1) 10/28/19 04:24 Total Bilirubin 0.10 mg/dL (0.2-1.0) L 10/28/19 04:24 AST 13 Units/L (15-37) L 10/28/19 04:24 ALT 24 Units/L (12-78) 10/28/19 04:24 Alkaline Phosphatase 95 Units/L (46-116) 10/28/19 04:24 Creatine Kinase 91 Units/L (26-192) 10/28/19 07:56 CK-MB (CK-2) 3.4 ng/mL (0-4.0) 10/28/19 07:56 CK/CKMB % Calc 3.7 % (<4) 10/28/19 07:56 Troponin I 0.04 ng/mL (0-1.5) 10/28/19 07:56 Total Protein 5.4 g/dL (6.4-8.2) L 10/28/19 04:24 Albumin 2.1 g/dL (3.4-5.0) L 10/28/19 04:24 Globulin 3.3 g/dL (2.5-4.5) 10/28/19 04:24 Albumin/Globulin Ratio 0.6 Ratio (1.1-2.1) L 10/28/19 04:24 Specimen Type Clean catch urine 10/26/19 21:00 Urine Color Yellow (YELLOW) 10/26/19 21:00 Urine Appearance Clear (CLEAR) 10/26/19 21:00 Urine pH 5.0 (5.0 - 8.0) 10/26/19 21:00 Ur Specific [place] 1.015 (1.000-1.030) 10/26/19 21:00 Urine Protein 1+ (NEGATIVE) 10/26/19 21:00 Urine Glucose (UA) Negative (NEGATIVE) 10/26/19 21:00 Urine Ketones Negative (NEGATIVE) 10/26/19 21:00 Urine Occult Blood 1+ (NEGATIVE) 10/26/19 21:00 Urine Nitrite Negative (NEGATIVE) 10/26/19 21:00 Urine Bilirubin Negative (NEGATIVE) 10/26/19 21:00 Urine Urobilinogen Normal (NORMAL) 10/26/19 21:00 Ur Leukocyte Esterase Negative (NEGATIVE) 10/26/19 21:00 Urine RBC 0-2 /HPF (0-3) 10/26/19 21:00 Urine WBC 0-2 /HPF (0-5) 10/26/19 21:00 Ur Squamous Epith Cells Negative /HPF (NEGATIVE) 10/26/19 21:00 Urine Bacteria Negative /HPF (NEGATIVE) 10/26/19 21:00 Ur Culture Indicated? No/not indicated 10/26/19 21:00 Blood Type O NEGATIVE 10/28/19 07:56 Antibody Screen Negative 10/28/19 07:56 Crossmatch See Detail 10/28/19 07:56 - Plan (1) Acute hyperkalemia Status: Acute Plan: admit, iv fluids, continue to monitor (2) Infection of wound due to methicillin resistant Staphylococcus aureus (MRSA) Status: Acute Plan: bactrim ds 1 tablet po bid, continue to monitor (3) Chronic anemia Status: Acute Plan: TRANSFUSE 2 UNITS PRBC, iv pepcid, iv protonix, monitor labs (4) Constipation Status: Acute Qualifiers: Constipation type: unspecified constipation type Qualified Code(s): K59.00 - Constipation, unspecified Plan: milk of magnesia, colace, miralax, continue to monitor (5) Metabolic acidosis, increased anion gap Status: Acute
[2019-10-28 23:18] LABS: HEMOGLOBIN 9.6 g/dL (12.0-16.0)
[2019-10-29] MEDS: TYLENOL 325 MG TAB PO PRN (00:18)
[2019-10-29 05:13] LABS: BASOPHILS # (AUTO) 0.1 X10^3/uL (0.0-0.1); BASOPHILS % (AUTO) 1.1 % (0.2-1.0); EOSINOPHILS # (AUTO) 0.2 x10^3/uL (0.0-0.2); EOSINOPHILS % (AUTO) 4.1 % (0.9-2.9); HEMATOCRIT 27.5 % (36.0-47.0); LYMPHOCYTES # (AUTO) 1.6 X10^3/uL (1.3-2.9); MEAN CORPUSCULAR HEMOGLOBIN 29.9 pg (27.0-34.0); MEAN CORPUSCULAR HGB CONC 32.6 g/dL (33.0-35.0); MEAN CORPUSCULAR VOLUME 91.8 fL (80.0-100.0); MEAN PLATELET VOLUME 8.3 fL (7.4-11.0); MONOCYTES # (AUTO) 0.6 x10^3/uL (0.3-0.8); MONOCYTES % (AUTO) 10.6 % (0.0-13.0); NEUTROPHILS # (AUTO) 3.1 x10^3/uL (2.2-4.8); NEUTROPHILS % (AUTO) 55.2 % (42.0-75.0); PLATELET COUNT 214 X10^3/uL (150.0-450.0); RED CELL DISTRIBUTION WIDTH 15.1 % (11.6-16.5); WHITE BLOOD COUNT 5.7 X10^3/uL (3.6-10.0)
[2019-10-29 05:26] LABS: ALANINE AMINOTRANSFERASE 22 Units/L (12-78); ALBUMIN 2.2 g/dL (3.4-5.0); ALKALINE PHOSPHATASE 94 Units/L (46-116); ASPARTATE AMINO TRANSFERASE 12 Units/L (15-37); BLOOD UREA NITROGEN 17 mg/dL (7-18); CALCIUM 8.2 mg/dL (8.5-10.1); CARBON DIOXIDE 18.5 mmol/L (21-32); CHLORIDE 111 mmol/L (98-107); COR CA(FOR HYPOALB) 9.6 mg/dL (8.5-10.1); CREATININE 1.09 mg/dL (0.55-1.02); SODIUM 139 mmol/L (136-145); TOTAL PROTEIN 5.7 g/dL (6.4-8.2); eGFR NON BLACK RACES 51 (>60)
[2019-10-29] MEDS: NS 1000 ML 1,000 ML IV SCH (06:13)
[2019-10-29] MEDS ORDERED: ZESTRIL TAB 20 MG ONE (08:28)
[2019-10-29] MEDS: BACTRIM DS TAB PO SCH (08:35)
[2019-10-29] MEDS: ULTRAM PO SCH (08:36)
[2019-10-29] MEDS: PEPCID 20 MG IV PREMIX* 10 MG/25 ML BAG IV SCH (08:37)
[2019-10-29] MEDS: ZESTRIL TAB 20 MG PO SCH (08:37)
[2019-10-29] MEDS: PROTONIX TAB 40 MG PO SCH (08:37)
[2019-10-29] MEDS: CARAFATE ORAL SUSP PO SCH (08:42)
[2019-10-29] MEDS: COLACE CAP 100 MG PO SCH (08:43)
[2019-10-29] MEDS: MIRALAX POWDER (1 DOSE 17 G) PO SCH (08:43)
[2019-10-29] MEDS: LEVSIN/MAALOX/LIDOC VISC PO SCH (08:43)
[2019-10-29] MEDS: MILK OF MAGNESIA PO SCH (08:43)
[2019-10-29 09:02] VITALS: BP 169/74
== END 2019-10-29 12:21 | disposition home or self-care (01) ==
LOC: ER 20:34 → ICU 20:34
PROVIDERS: ADMIT Obstetrics & Gynecology Obstetrics; ATTEND Internal Medicine
DX: K59.09 Other constipation; M13.89 Other specified arthritis, multiple sites; R10.84 Generalized abdominal pain; R94.4 Abnormal results of kidney function studies; I12.9 Hypertensive chronic kidney disease with stage 1 through stage 4 chronic kidney disease, or unspecified chronic kidney disease; B95.62 Methicillin resistant Staphylococcus aureus infection as the cause of diseases classified elsewhere; E87.2 Acidosis; X58.XXXA Exposure to other specified factors, initial encounter; E87.5 Hyperkalemia; S21.209A Unspecified open wound of unspecified back wall of thorax without penetration into thoracic cavity, initial encounter; N18.3 Chronic kidney disease, stage 3 (moderate); K57.30 Diverticulosis of large intestine without perforation or abscess without bleeding; R94.31 Abnormal electrocardiogram [ECG] [EKG]; D64.89 Other specified anemias; Z79.899 Other long term (current) drug therapy
CPT/HCPCS: 36415; 36600; 71020; 71046; 74176; 80048; 80053; 81001; 82550; 82553; 82803; 83605; 84484; 85014; 85018; 85025; 86850; 86900; 86901; 86922; 87040; 93005; 96360; 96361; 96365; 96367; 96374; 96375; 99284; A4216; A4222; G0378; J1815; J1885; J2270; J3490; J7030; J7040; P9016; S0028

== ENCOUNTER 2022-10-22 11:03 | Observation (INO) ==
--- NOTE | 2022-10-22 11:20 | DR.SOBA ---
HPI Time Seen Time Seen by Provider: 10/22/22 11:19 Primary Care Physician Primary Care Physician: MORALES SHERIFF Complaints Chief Complaint:: PT. WAS DIAGNOSED WITH COVID 19 ONE WEEK AGO. PT. C/O GENERALIZED WEAKNESS, DIARRHEA, NAUSEA, DECREASED APPETITE AND ORAL INTAKE AND COUGH. COVID-19 Coronavirus risk:travel/contact w/high risk person: Yes Has patient experienced Coronavirus symptoms: Yes Coronavirus symptoms experienced: Coughing Source History Provided: Patient and Family Member Mode of Arrival Mode of Arrival: Wheelchair Timing Onset of Chief Complaint: 10/17/22 PMH PMH Past Medical History: Yes Past Medical History: Arthritis and Hypertension Past Surgical History: Yes Surgical History: Appendectomy, Cholecystectomy and Hysterectomy Family History History of Family Medical Conditions: Yes Family Medical History: Hypertension Social History Does patient currently use any type of tobacco product: No Have you used tobacco products in the last 12 months: No Type of Tobacco Use: None Does any household member use tobacco: No Alcohol Use: None Do you use any recreational Drugs:: No Lives With: Spouse Lives Where: Home Travel Risk Coronavirus risk:travel/contact w/high risk person: Yes Has patient experienced Coronavirus symptoms: Yes Coronavirus symptoms experienced: Coughing Infectious screening In the last 2 months have you had wt loss of >10#?: NO Have you had fever, night sweats or hemotysis?: No Have you traveled outside the country in the last 6 months?: No Isolation: Droplet PE Vital Signs Vitals: Temperature 98.0 F Pulse Rate 69 Respiratory Rate 17 Blood Pressure [Right Arm] 158/67 Blood Pressure 188/82 O2 Sat by Pulse Oximetry 99 ROR Labs Reviewed Result Diagrams: 10/22/22 11:23 10/22/22 11:23 Laboratory: WBC 5.8 X10^3/uL (3.6-10.0) 10/22/22 11: RBC 4.28 X10^6/uL (3.5-5.4) 10/22/22 11:23 Hgb 11.9 g/dL (12.0-16.0) L 10/22/22 11:23 Hct 36.8 % (36.0-47.0) 10/22/22 11:23 MCV 86.1 fL (80.0-100.0) 10/22/22 11:23 MCH 27.8 pg (27.0-34.0) 10/22/22 11: MCHC 32.3 g/dL (33.0-35.0) L 10/22/22 11: RDW 18.3 % (11.6-16.5) H 10/22/22 11: Plt Count 224 X10^3/uL (150.0-450.0) 10/22/22 11: MPV 8.6 fL (7.4-11.0) 10/22/22 11:23 Neut % (Auto) 66.9 % (42.0-75.0) 10/22/22 11:23 Lymph % (Auto) 24.2 % (21.0-51.0) 10/22/22 11: [place] % (Auto) 8.4 % (0.0-13.0) 10/22/22 11: Eos % (Auto) 0.4 % (0.9-2.9) L 10/22/22 11: Baso % (Auto) 0.1 % (0.2-1.0) L 10/22/22 11:23 Neut # (Auto) 3.9 x10^3/uL (2.2-4.8) 10/22/22 11: Lymph # (Auto) 1.4 X10^3/uL (1.3-2.9) 10/22/22 11:23 [place] # (Auto) 0.5 x10^3/uL (0.3-0.8) 10/22/22 11: Eos # (Auto) 0.0 x10^3/uL (0.0-0.2) 10/22/22 11: Baso # (Auto) 0.0 X10^3/uL (0.0-0.1) 10/22/22 11: Absolute Nucleated RBC 0.0 /100WBC 10/22/22 11: D-Dimer 0.38 ug/ml (0.0-0.57) 10/22/22 11:23 Sample Site Rr 10/22/22 11:25 ABG pH 7.440 (7.35-7.45) 10/22/22 11:25 ABG pCO2 41.0 mmHg (35.0-45.0) 10/22/22 11:25 ABG pO2 73.0 mmHg (80.0-100.0) L 10/22/22 11:25 ABG HCO3 27.8 mmol/L (22-26) H 10/22/22 11:25 ABG O2 Saturation 95.0 % (90-100) 10/22/22 11:25 ABG Base Excess 3.3 mmol/L (-2.0-2.0) H 10/22/22 11:25 Asim Test Pos 10/22/22 11:25 A-a Gradient 25.0 mmHg 10/22/22 11:25 FiO2 21.0 10/22/22 11:25 Blood Gas Comments Sergio well 10/22/22 11:25 Sodium 134 mmol/L (136-145) L 10/22/22 11:23 Corrected Sodium TNP 10/22/22 11:23 Potassium 4.5 mmol/L (3.5-5.1) 10/22/22 11:23 Chloride 100 mmol/L (98-107) 10/22/22 11:23 Carbon Dioxide 31.5 mmol/L (21-32) 10/22/22 11:23 BUN 23 mg/dL (7-18) H 10/22/22 11:23 Creatinine 0.90 mg/dL (0.55-1.02) 10/22/22 11:23 Est GFR (MDRD) Af Amer > 60 (>60) 10/22/22 11:23 Est GFR (MDRD) Non-Af > 60 (>60) 10/22/22 11:23 Glucose 107 mg/dL (65-99) H 10/22/22 11:23 Calcium 8.5 mg/dL (8.5-10.1) 10/22/22 11:23 Corrected Calcium 9.1 mg/dL (8.5-10.1) 10/22/22 11:23 Total Bilirubin 0.30 mg/dL (0.2-1.0) 10/22/22 11:23 AST 23 Units/L (15-37) 10/22/22 11:23 ALT 24 Units/L (12-78) 10/22/22 11:23 Alkaline Phosphatase 56 Units/L (46-116) 10/22/22 11:23 B-Natriuretic Peptide 87.6 pg/mL (0-79) H 10/22/22 11:23 Total Protein 6.9 g/dL (6.4-8.2) 10/22/22 11: Albumin 3.2 g/dL (3.4-5.0) L 10/22/22 11: Globulin 3.7 g/dL (2.5-4.5) 10/22/22 11: Albumin/Globulin Ratio 0.9 Ratio (1.1-2.1) L 10/22/22 11:23 Amylase 80 Units/L (25-115) 10/22/22 11: Lipase 78 Units/L (73-393) 10/22/22 11:23 Specimen Type Clean catch urine 10/22/22 13:05 Urine Color Yellow (YELLOW) 10/22/22 13:05 Urine Appearance Clear (CLEAR) 10/22/22 13:05 Urine pH 6.0 (5.0 - 8.0) 10/22/22 13:05 Ur Specific [place] 1.020 (1.000-1.030) 10/22/22 13:05 Urine Protein 1+ (NEGATIVE) 10/22/22 13:05 Urine Glucose (UA) Negative (NEGATIVE) 10/22/22 13:05 Urine Ketones 1+ (NEGATIVE) 10/22/22 13:05 Urine Blood Negative (NEGATIVE) 10/22/22 13:05 Urine Nitrite Negative (NEGATIVE) 10/22/22 13:05 Urine Bilirubin Negative (NEGATIVE) 10/22/22 13:05 Urine Urobilinogen Normal (NORMAL) 10/22/22 13:05 Ur Leukocyte Esterase Negative (NEGATIVE) 10/22/22 13:05 Urine RBC None seen /HPF (0-3) 10/22/22 13:05 Urine WBC None seen /HPF (0-5) 10/22/22 13:05 Ur Squamous Epith Cells Rare /HPF (NEGATIVE) 10/22/22 13:05 Urine Bacteria Trace /HPF (NEGATIVE) 10/22/22 13:05 Ur Culture Indicated? No/not indicated 10/22/22 13:05 Opioid Opioid Risk Tool Age (Douglas box if 16-45): No History of Preadolescent Sexual Abuse: No Total: 0 Total Score Risk Category: Low Risk Copyright: Parker VICTORIA predicting aberrant behaviors Discharge Plan Diagnosis Discharge Problem: COVID-19 virus infection, Dehydration, Generalized muscle weakness, Bronchitis Discharge Plan Patient Disposition: 09 ADMITTED INPATIENT Condition: Stable Orders to Discharge Patient Discharge Orders: Transfer (Routine); Ordered 10/22/22 Ordered By: FRANSISCA BARRETO
[2022-10-22] MEDS ORDERED: NS 1,000 ML IV 1,000 ML ONE (11:41)
[2022-10-22 11:51] LABS: ALANINE AMINOTRANSFERASE 24 Units/L (12-78); ALBUMIN 3.2 g/dL (3.4-5.0); ALKALINE PHOSPHATASE 56 Units/L (46-116); AMYLASE 80 Units/L (25-115); ASPARTATE AMINO TRANSFERASE 23 Units/L (15-37); BASOPHILS % (AUTO) 0.1 % (0.2-1.0); BLOOD UREA NITROGEN 23 mg/dL (7-18); CALCIUM 8.5 mg/dL (8.5-10.1); CARBON DIOXIDE 31.5 mmol/L (21-32); CHLORIDE 100 mmol/L (98-107); COR CA(FOR HYPOALB) 9.1 mg/dL (8.5-10.1); EOSINOPHILS % (AUTO) 0.4 % (0.9-2.9); HEMATOCRIT 36.8 % (36.0-47.0); HEMOGLOBIN 11.9 g/dL (12.0-16.0); LIPASE 78 Units/L (73-393); LYMPHOCYTES # (AUTO) 1.4 X10^3/uL (1.3-2.9); LYMPHOCYTES % (AUTO) 24.2 % (21.0-51.0); MEAN CORPUSCULAR HEMOGLOBIN 27.8 pg (27.0-34.0); MEAN CORPUSCULAR HGB CONC 32.3 g/dL (33.0-35.0); MEAN CORPUSCULAR VOLUME 86.1 fL (80.0-100.0); MEAN PLATELET VOLUME 8.6 fL (7.4-11.0); MONOCYTES # (AUTO) 0.5 x10^3/uL (0.3-0.8); MONOCYTES % (AUTO) 8.4 % (0.0-13.0); NEUTROPHILS # (AUTO) 3.9 x10^3/uL (2.2-4.8); NEUTROPHILS % (AUTO) 66.9 % (42.0-75.0); RED BLOOD COUNT 4.28 X10^6/uL (3.5-5.4); RED CELL DISTRIBUTION WIDTH 18.3 % (11.6-16.5); SODIUM 134 mmol/L (136-145); TOTAL PROTEIN 6.9 g/dL (6.4-8.2); WHITE BLOOD COUNT 5.8 X10^3/uL (3.6-10.0); eGFR NON BLACK RACES > 60 (>60)
[2022-10-22 11:57] LABS: ABG ALLEN TEST POS; ABG BASE EXCESS 3.3 mmol/L (-2.0-2.0); ABG HCO3 27.8 mmol/L (22-26)
[2022-10-22] MEDS ORDERED: NS 1,000 ML IV 1,000 ML IV SCH (12:00)
[2022-10-22] MEDS ORDERED: MORPHINE SULFATE INJ 2 MG INJ IVP ONE (13:11)
[2022-10-22] MEDS ORDERED: ZOFRAN INJ 4 MG VIAL IVP ONE (13:11)
[2022-10-22] MEDS ORDERED: MORPHINE SULFATE INJ 2 MG INJ ONE (13:15)
[2022-10-22] MEDS ORDERED: ZOFRAN INJ 4 MG VIAL ONE (13:15)
[2022-10-22 13:26] LABS: BILIRUBIN,URINE NEGATIVE (NEGATIVE); BLOOD/HEMOGLOBIN,URINE NEGATIVE (NEGATIVE); GLUCOSE, URINE NEGATIVE (NEGATIVE); KETONES,URINE 1+ (NEGATIVE); LEUKOCYTE ESTERASE ,URINE NEGATIVE (NEGATIVE); NITRITES,URINE NEGATIVE (NEGATIVE); PROTEIN,URINE 1+ (NEGATIVE); UROBILINOGEN,URINE NORMAL (NORMAL)
[2022-10-22 13:31] LABS: APPEARANCE,URINE CLEAR (CLEAR); COLOR,URINE YELLOW (YELLOW)
[2022-10-22 13:33] LABS: BACTERIA,URINE TRACE /HPF (NEGATIVE); RBC,URINE NONE SEEN /HPF (0-3)
[2022-10-22 13:34] LABS: SQUAMOUS EPITHELIAL CELL,UR RARE /HPF (NEGATIVE)
--- NOTE | 2022-10-22 14:24 | RAD ---
HISTORYSOBSTUDYCHEST, 1 [id number]/2020FINDINGSThe lungs are clear. No pneumothorax or significant effusion.Heart size is normal. Vascular calcifications are present compatible with atherosclerosis.Mild scoliosis.EKG leads are noted.IMPRESSION1. No significant abnormalityElectronically signed by: Arnie Garcia (Oct 22, 2022 14:22:43)
[2022-10-22] MEDS ORDERED: NORMODYNE INJ 20 MG VIAL IV PRN (15:14)
[2022-10-22] MEDS ORDERED: APRESOLINE INJ 20 MG VIAL IVP ONE (15:14)
[2022-10-22] MEDS ORDERED: CATAPRES TAB 0.1 MG PO ONE (15:14)
[2022-10-22] MEDS ORDERED: NS 1,000 ML IV 1,000 ML IV ONE (16:00)
[2022-10-22] MEDS: FIORICET TAB PO PRN (16:21)
[2022-10-22] MEDS: NORCO 5/325 MG TAB PO PRN (20:10)
[2022-10-22] MEDS: NS 1,000 ML IV 1,000 ML IV SCH ×2 (20:15→23:58)
[2022-10-23] MEDS: FIORICET TAB PO PRN (00:02)
[2022-10-23] MEDS: NORCO 5/325 MG TAB PO PRN ×2 (04:59→11:28)
[2022-10-23 06:36] LABS: BASOPHILS % (AUTO) 0.2 % (0.2-1.0); EOSINOPHILS # (AUTO) 0.1 x10^3/uL (0.0-0.2); EOSINOPHILS % (AUTO) 1.7 % (0.9-2.9); HEMATOCRIT 32.1 % (36.0-47.0); HEMOGLOBIN 10.3 g/dL (12.0-16.0); LYMPHOCYTES # (AUTO) 1.8 X10^3/uL (1.3-2.9); LYMPHOCYTES % (AUTO) 41.5 % (21.0-51.0); MEAN CORPUSCULAR HEMOGLOBIN 27.5 pg (27.0-34.0); MEAN CORPUSCULAR HGB CONC 32.1 g/dL (33.0-35.0); MEAN CORPUSCULAR VOLUME 85.9 fL (80.0-100.0); MEAN PLATELET VOLUME 8.8 fL (7.4-11.0); MONOCYTES # (AUTO) 0.4 x10^3/uL (0.3-0.8); MONOCYTES % (AUTO) 9.1 % (0.0-13.0); NEUTROPHILS # (AUTO) 2.1 x10^3/uL (2.2-4.8); NEUTROPHILS % (AUTO) 47.5 % (42.0-75.0); RED BLOOD COUNT 3.74 X10^6/uL (3.5-5.4); RED CELL DISTRIBUTION WIDTH 17.9 % (11.6-16.5); WHITE BLOOD COUNT 4.3 X10^3/uL (3.6-10.0)
[2022-10-23 06:53] LABS: ALANINE AMINOTRANSFERASE 16 Units/L (12-78); ALBUMIN 2.6 g/dL (3.4-5.0); ALKALINE PHOSPHATASE 44 Units/L (46-116); ASPARTATE AMINO TRANSFERASE 18 Units/L (15-37); BLOOD UREA NITROGEN 14 mg/dL (7-18); CARBON DIOXIDE 26.9 mmol/L (21-32); CHLORIDE 105 mmol/L (98-107); COR CA(FOR HYPOALB) 9.1 mg/dL (8.5-10.1); CREATININE 0.78 mg/dL (0.55-1.02); SODIUM 139 mmol/L (136-145); TOTAL PROTEIN 5.7 g/dL (6.4-8.2); eGFR NON BLACK RACES > 60 (>60)
--- NOTE | 2022-10-23 07:13 | RAD ---
HISTORYShortness of breathSTUDYChest AP [id number]/23/2023FINDINGSHear t size is normal. Yesenia are normal. Aorta is calcified. Lung edge are clear. No pleural effusions are identified. Bony thorax is unremarkable.IMPRESSIONNo significant abnormality identifiedElectronically signed by: JACKELINE REDDING (Oct 23, 2022 07:11:48)
[2022-10-23] MEDS: LOVENOX INJ 40 MG SYR SC SCH (09:35)
[2022-10-23 11:20] VITALS: BMI 18.3
--- NOTE | 2022-10-23 12:10 | DR.H&P ---
H&P - History & Physical for Day of: H&P Date: 10/22/22 - Chief Complaint Chief Complaint: WEAKNESS, DIARRHEA, NAUSEA, DECREASED APPETITE, COUGH, DECREASED ORAL INTAKE - History of Present Illness History of Present Illness: IS A 87 YEAR OLD PATIENT OF OURS. SHE PRESENTED TO THE ER WITH COMPLAINTS OF WEAKNESS, DIARRHEA, NAUSEA, DECREASED APPETITE, COUGH, AND DECREASED ORAL INTAKE. SHE WAS DIAGNOSED ONE WEEK AGO WITH COVID-19. HER PMH INCLUDES: ARTHRITIS, HTN, GERD, APPENDECTOMY, CHOLECYSTECTOMY, AND HYSTERECTOMY. ON ARRIVAL TO THE ER, HER VITALS WERE: 98.0-81-17-99%-212/96. LABS WERE OBTAINED. WBC 5.8, RBC 4.28, HGB 11.9, HCT 36.8, PLT COUNT 224, D- DIMER 0.38, SODIUM 134, POTASSIUM 4.5, CHLORIDE 100, CARBON DIOXIDE 31.5, BUN 23, CREATININE 0.90, GLUCOSE 107, CALCIUM 8.5, TOTAL BILI 0.30, AST 23, ALT 24, ALK PHOS 56, BNP 87.6, TOTAL PROTEIN 6.9, ALBUMIN 3.2, AMYLSASE 80, LIPASE 78. A URINALYSIS WAS OBTAINED AND WAS UNREMARKABLE. A CHEST XRAY WAS OBTAINED AND REVEALED: NO SIGNIFICANT ABNORMALITY. IN THE ER, SHE WAS GIVEN MORPHINE 2MG IV X 1, ZOFRAN 4MG IV X 1, CATAPRES 0.1MG PO X 1. HER BLOOD PRESSURE DECREASED TO 177/80. SHE WAS ADMITTED TO THE HOSPITAL FOR FURTHER EVALUATION AND TREATMENT OF BRONCHITIS DUE TO COVID-19, DEHYDRATION, AND GENERALIZED WEAKNESS. SHE WAS STARTED ON NORMAL SALINE AT 75 ML/HR, SOLU-MEDROL 40MG IV Q8H, NORCO 5/325MG PO Q6H PRN, LOVENOX 40MG SC DAILY, FIORICET 2 TABS PO Q8H PRN, AND THE LABETALOL PROTOCOL. WE WILL RESUME HER HOME MEDICATIONS OF METAXALONE, LYRICA, FERROUS SULFATE, BENZONATATE, AMLODIPINE, VALSARTAN, TRAMADOL, PANTOPRAZOLE, PERCOCET, LISINOPRIL, AND LOMOTIL. OTHERWISE, WE WILL FOLLOW-UP WITH AM LABS AND CONTINUE TO MONITOR. TIME SPENT ON CLINICAL ASSESSMENT, REVIWING LABS AND IMAGING, DECISION MAKING, AND DOCUMENTATION GREATER THAN 75 MINUTES. - Past Medical History Past Medical History: Hypertension, Arthritis - Past Surgical History Surgical History: Appendectomy, Cholecystectomy, Hysterectomy - Family History Family Medical History: Heart Failure - Social History Does patient currently use any type of tobacco product: No Have you used tobacco products in the last 12 months: No Type of Tobacco Use: None Does any household member use tobacco: No Alcohol Use: None Drug Use: None - Medications Home Medications: No Known Drug Allergies Allergy (Verified 10/22/22 11:09) CONTINUE taking the following medications amlodipine 5 mg tablet 1 tab PO QDAY 10/22/22 [History] benzonatate 200 mg capsule 1 cap PO TID 10/22/22 [History] diphenoxylate-atropine 2.5 mg-0.025 mg tablet 1 tab PO BID PRN 10/22/22 [History] ferrous sulfate 325 mg (65 mg iron) tablet (FeroSul) 1 tab PO HS 10/22/22 [History] hydrochlorothiazide 25 mg tablet 1 tab PO QDAY 10/22/22 [History] lisinopril 20 mg tablet 1 tab PO QDAY 10/22/22 [History] metaxalone 800 mg tablet 1 tab PO Q6H 10/22/22 [History] oxycodone-acetaminophen 10 mg-325 mg tablet 1 tab PO TID PRN 10/22/22 [History] pantoprazole 40 mg tablet,delayed release 1 tab PO QDAY 10/22/22 [History] pregabalin 100 mg capsule 1 cap PO .EVENING 10/22/22 [History] tramadol 50 mg tablet 1 tab PO Q6H PRN 10/22/22 [History] valsartan 320 mg tablet 1 tab PO QDAY 10/22/22 [History] - Review of Systems Constitutional: Weakness Eyes: No Symptoms Reported ENT: No Symptoms Reported Respiratory: Cough, Shortness of Breath, SOB with Excertion Cardiovascular: No Symptoms Reported Gastrointestinal: See HPI, Nausea, Diarrhea. denies: Vomiting, Abdominal Pain, Constipation Genitourinary: No Symptoms Reported Musculoskeletal: No Symptoms Reported Skin: No Symptoms Reported Neurological: Weakness - Physical Exam Vital Signs: Temperature 97.6 F Pulse Rate [Left] 61 Pulse Rate 67 Respiratory Rate 18 Blood Pressure [Left Arm] 138/78 Blood Pressure [Right Arm] 163/75 Blood Pressure 166/77 O2 Sat by Pulse Oximetry 96 Oriented: Normal Eyes: Normal Ear: Normal Nose: Normal Throat: Normal Respiratory: Diminished Throughout Cardiovascular: Normal : Normal Auscultation: Bowel Sounds: Normal Palpation: Normal Tenderness: Normal Skin: Normal Musculoskeletal: Normal Psychiatric: Normal Mood Description: Calm Affect: Normal Speech Pattern: Clear - Assessment/Plan (1) Bronchitis due to COVID-19 virus Status: Acute Plan: ADMIT, NORMAL SALINE AT 75 ML/HR, SOLU-MEDROL 40MG IV Q8H, NORCO 5/325MG PO Q6H PRN, LOVENOX 40MG SC DAILY, FIORICET 2 TABS PO Q8H PRN, AND THE LABETALOL PROTOCOL. WE WILL RESUME HER HOME MEDICATIONS OF METAXALONE, LYRICA, FERROUS SULFATE, BENZONATATE, AMLODIPINE, VALSARTAN, TRAMADOL, PANTOPRAZOLE, PERCOCET, LISINOPRIL, AND LOMOTIL. (2) Dehydration Status: Acute (3) Generalized muscle weakness Status: Acute (4) HTN (hypertension) Qualifiers: Hypertension type: primary hypertension Qualified Code(s): I10 - Essential (primary) hypertension Status: Chronic (5) GERD (gastroesophageal reflux disease) Qualifiers: Esophagitis presence: esophagitis presence not specified Qualified Code(s): K21.9 - Gastro-esophageal reflux disease without esophagitis Status: Chronic - Allergies Allergies/Adverse Reactions: Allergies Allergy/AdvReac Type Severity Reaction Status Date / Time No Known Drug Allergies Allergy Verified 10/22/22 11:09
[2022-10-23] MEDS ORDERED: LOMOTIL PO PRN (12:14)
[2022-10-23] MEDS ORDERED: ULTRAM PO PRN (12:14)
[2022-10-23] MEDS ORDERED: METAXALONE 800 MG PO PRN (12:15)
[2022-10-23] MEDS ORDERED: ZESTRIL TAB 20 MG PO SCH (13:00)
[2022-10-23] MEDS: NS 1,000 ML IV 1,000 ML IV SCH (13:27)
[2022-10-23] MEDS: TESSALON PERLES PO SCH ×2 (13:27→21:13)
[2022-10-23] MEDS: ZESTRIL TAB 20 MG PO SCH (13:28)
[2022-10-23] MEDS: DIOVAN TAB 160 MG PO SCH (13:28)
[2022-10-23] MEDS: PROTONIX TAB 40 MG PO SCH (13:28)
[2022-10-23] MEDS: NORVASC TAB 5 MG PO SCH (13:28)
[2022-10-23] MEDS: SOLU-Medrol 40 MG VIAL IVP SCH ×2 (13:29→21:13)
[2022-10-23] MEDS: PERCOCET TAB 5/325 MG PO PRN (20:11)
[2022-10-23] MEDS ORDERED: FERROUS GLUCONATE PO SCH (21:00)
[2022-10-23] MEDS ORDERED: LYRICA CAP 75 mg PO SCH (21:00)
[2022-10-24] MEDS: NS 1,000 ML IV 1,000 ML IV SCH (02:20)
[2022-10-24] MEDS: PERCOCET TAB 5/325 MG PO PRN (04:23)
[2022-10-24] MEDS: TESSALON PERLES PO SCH (05:11)
[2022-10-24] MEDS: SOLU-Medrol 40 MG VIAL IVP SCH (05:11)
--- NOTE | 2022-10-24 06:24 | RAD ---
HISTORYShortness of breath, COVID-19STUDYChest AP [id number]/24/2023FINDINGSHear t size is normal. Yesenia are normal. Aorta is calcified and mildly ectatic. Lungs are well inflated and free of acute infiltrates. No pleural effusions are identified. Bony thorax is unremarkable.IMPRESSIONNo significant abnormality identifiedElectronically signed by: JACKELINE REDDING (Oct 24, 2022 06:23:33)
[2022-10-24 06:46] LABS: BASOPHILS % (AUTO) 0.2 % (0.2-1.0); HEMATOCRIT 31.8 % (36.0-47.0); HEMOGLOBIN 10.5 g/dL (12.0-16.0); LYMPHOCYTES # (AUTO) 0.7 X10^3/uL (1.3-2.9); LYMPHOCYTES % (AUTO) 50.8 % (21.0-51.0); MEAN CORPUSCULAR HEMOGLOBIN 28.4 pg (27.0-34.0); MEAN PLATELET VOLUME 8.5 fL (7.4-11.0); MONOCYTES # (AUTO) 0.1 x10^3/uL (0.3-0.8); MONOCYTES % (AUTO) 5.1 % (0.0-13.0); NEUTROPHILS # (AUTO) 0.6 x10^3/uL (2.2-4.8); NEUTROPHILS % (AUTO) 43.9 % (42.0-75.0); RED CELL DISTRIBUTION WIDTH 18.1 % (11.6-16.5)
[2022-10-24 06:48] LABS: WHITE BLOOD COUNT 1.5 X10^3/uL (3.6-10.0)
[2022-10-24 06:59] LABS: ALANINE AMINOTRANSFERASE 14 Units/L (12-78); ALBUMIN 2.7 g/dL (3.4-5.0); ALKALINE PHOSPHATASE 49 Units/L (46-116); ASPARTATE AMINO TRANSFERASE 15 Units/L (15-37); BLOOD UREA NITROGEN 12 mg/dL (7-18); CARBON DIOXIDE 26.5 mmol/L (21-32); CHLORIDE 106 mmol/L (98-107); COR NA(FOR HYPERGLY) 138 mmol/L (136-145); CREATININE 0.71 mg/dL (0.55-1.02); SODIUM 137 mmol/L (136-145); eGFR NON BLACK RACES > 60 (>60)
[2022-10-24] MEDS ORDERED: ZESTRIL TAB 20 MG ONE ×2 (09:14→09:15)
[2022-10-24] MEDS: LOVENOX INJ 40 MG SYR SC SCH (09:17)
[2022-10-24] MEDS: NORVASC TAB 5 MG PO SCH (09:18)
[2022-10-24] MEDS: PROTONIX TAB 40 MG PO SCH (09:18)
[2022-10-24] MEDS: ZESTRIL TAB 20 MG PO SCH (09:18)
[2022-10-24] MEDS: DIOVAN TAB 160 MG PO SCH (09:18)
[2022-10-24 12:05] VITALS: BP 148/70
== END 2022-10-24 13:20 | disposition home health service (06) ==
LOC: MED/SURG 11:03 → ER 11:03 → MED/SURG 14:26
PROVIDERS: ADMIT Internal Medicine; ATTEND Internal Medicine

== ENCOUNTER 2024-02-06 13:13 | Observation (INO) ==
[2024-02-06 13:27] VITALS: BMI 16.0
--- NOTE | 2024-02-06 13:29 | DR.DIZZY ---
HPI Time seen Time Seen by Provider: 02/06/24 13:27 PCP Primary Care Physician: MARLON Complaint Chief Complaint Doctor Comments: 88 y/o female presents for evaluation. Patient fell last week, went to another ER facility 6 days ago, diagnosed with multiple rib fractures and a collapsed lung. Patient had a chest tube inserted then. Patient was hospitalized for 2 days and then discharged 4 days ago. Had been doing well for 2 days, started feeling poorly yesterday. Having generalized weakness, cough, some shortness of breath, profuse diarrhea. Has had decreased p.o. intake. No fever or chills. No urinary issues. Chief Complaint:: DAUGHTER STATES THAT SHE FELL LAST SAT, AND WAS TAKEN TO [facility], WHICH SHOWED SHE HAD A LUNG COLLAPSE, AND 3 BROKEN RIBS IN WHICH SHE WAS ADMITTED. PT WAS D/C'D ON SATURDAY AND HAD BEEN DOING BETTER, UNTIL YESTERDAY. PT STARTED HAVING DIARRHEA, WEAK, SOB, AND HURTING ALL OVER. Self Treatment fo Chief Complaint: N/A COVID-19 Coronavirus risk:travel/contact w/high risk person: No Has patient experienced Coronavirus symptoms: Yes Coronavirus symptoms experienced: Shortness of Breath Source History Provided: Patient and Family Member Mode of Arrival Mode of Arrival: Wheelchair Timing Onset of Chief Complaint: 02/05/24 Context Stroke Symptoms: None PMH PMH Past Medical History: Yes Past Medical History: Arthritis and Hypertension Past Surgical History: Yes Surgical History: Appendectomy, Cholecystectomy and Hysterectomy Past Surgical History Comment: GASTRIC BYPASS Family History History of Family Medical Conditions: Yes Family Medical History: Heart Failure Social History Does patient currently use any type of tobacco product: No Have you used tobacco products in the last 12 months: No Type of Tobacco Use: None Does any household member use tobacco: No Alcohol Use: None Do you use any recreational Drugs:: No Lives With: Spouse Lives Where: Home Travel Risk Coronavirus risk:travel/contact w/high risk person: No Has patient experienced Coronavirus symptoms: Yes Coronavirus symptoms experienced: Shortness of Breath Infectious screening Have you traveled outside the country in the last 6 months?: No Isolation: Standard ROS Review of Systems Constitutional: Malaise and Weakness Eyes: No Symptoms Reported ENTM: No Symptoms Reported Respiratoy: Non-Productive Cough and Short of Breath Cardiovascular: No Symptoms Reported Gastrointestinal/Abdominal: Diarrhea Genitourinary: No Symptoms Reported Neurological: Weakness Musculoskeletal: No Symptoms Reported Integumentary: No Symptoms Reported Hematologic/Lymphatic: No Symptoms Reported All Other Systems: Reviewed and Negative PE Vital Signs Vitals: Vital Signs Pulse Rate 76 Pulse Rate 76 Pulse Rate 79 Pulse Rate 79 Pulse Rate 82 Pulse Rate 80 Respiratory Rate 20 Respiratory Rate 18 Respiratory Rate 20 Respiratory Rate 20 Blood Pressure 160/67 Blood Pressure 160/67 Blood Pressure 160/67 O2 Sat by Pulse Oximetry 99 O2 Sat by Pulse Oximetry 99 O2 Sat by Pulse Oximetry 95 O2 Sat by Pulse Oximetry 95 O2 Sat by Pulse Oximetry 96 O2 Sat by Pulse Oximetry 95 General General Appearance: Alert and In No Apparent Distress Eyes Eye exam: PERRL and EOMI ENT ENT Exam: Normal Oropharynx and Mucous Membranes Moist Neck Neck Exam: Normal Inspection and Full ROM Respiratory Respiratory Exam: Other (Rales left base); negative Accessory Muscle Use or Respiratory Distress Cardiovascular Cardiovascular Exam: Regular Rate, Normal Rhythm and Normal Heart Sounds Abdominal Exam Abdominal Exam: Normal Bowel Sounds and Soft; negative Tenderness Extremeties Extremities Exam: Normal Inspection and Full ROM; negative Edema Neurologic Neurological Exam: Alert and CN II-XII Intact; negative Motor Sensory Deficit Skin Skin Exam: Dry and Other (Decreased skin turgor) COURSE Treatment Treatment: 88-year-old female, recently diagnosed with right rib fractures, right pneumothorax, treated at another facility past weekend. Had a chest tube for 2 days. Now having increasing weakness, some shortness of breath, diarrhea. Clinically looks well at rest, pulse ox 95 to 98% at rest. Workup initiated. Labs overall acceptable. Chest x-ray unremarkable. CT of the chest done without contrast for further evaluation. Show residual pneumothorax on the right side, probably about 10%. Does have multiple right rib fractures. Recommend admission for further observation, placed on O2 for comfort.. Will continue IV hydration. Discussed with Dr. Mayfield, covering for Dr. Prasad. Accepts the admission. Patient may deserve rehab admission. Will consult with surgery, Dr. Sorto, for consult in am. ROR Labs Reviewed 02/06/24 14:31 02/06/24 14:18 Laboratory: WBC 8.9 X10^3/uL (3.6-10.0) 02/06/24 14:31 RBC 3.25 X10^6/uL (3.5-5.4) L 02/06/24 14:31 Hgb 9.6 g/dL (12.0-16.0) L 02/06/24 14:31 Hct 29.7 % (36.0-47.0) L 02/06/24 14:31 MCV 91.3 fL (80.0-100.0) 02/06/24 14:31 MCH 29.6 pg (27.0-34.0) 02/06/24 14:31 MCHC 32.5 g/dL (33.0-35.0) L 02/06/24 14:31 RDW 14.0 % (11.6-16.5) 02/06/24 14:31 Plt Count 315 X10^3/uL (150.0-450.0) 02/06/24 14:31 MPV 7.8 fL (7.4-11.0) 02/06/24 14:31 Neut % (Auto) 76.1 % (42.0-75.0) H 02/06/24 14:31 Lymph % (Auto) 12.8 % (21.0-51.0) L 02/06/24 14:31 [place] % (Auto) 8.3 % (0.0-13.0) 02/06/24 14:31 Eos % (Auto) 2.6 % (0.9-2.9) 02/06/24 14:31 Baso % (Auto) 0.2 % (0.2-1.0) 02/06/24 14:31 Neut # (Auto) 6.7 x10^3/uL (2.2-4.8) H 02/06/24 14:31 Lymph # (Auto) 1.1 X10^3/uL (1.3-2.9) L 02/06/24 14:31 [place] # (Auto) 0.7 x10^3/uL (0.3-0.8) 02/06/24 14:31 Eos # (Auto) 0.2 x10^3/uL (0.0-0.2) 02/06/24 14:31 Baso # (Auto) 0.0 X10^3/uL (0.0-0.1) 02/06/24 14:31 Absolute Nucleated RBC 0.1 /100WBC 02/06/24 14:31 Sodium 139 mmol/L (136-145) 02/06/24 14:18 Corrected Sodium TNP 02/06/24 14:18 Potassium 3.5 mmol/L (3.5-5.1) 02/06/24 14:18 Chloride 103 mmol/L (98-107) 02/06/24 14:18 Carbon Dioxide 31.8 mmol/L (21-32) 02/06/24 14:18 BUN 18 mg/dL (7-18) 02/06/24 14:18 Creatinine 0.87 mg/dL (0.55-1.02) 02/06/24 14:18 Est GFR (MDRD) Af Amer > 60 (>60) 02/06/24 14:18 Est GFR (MDRD) Non-Af > 60 (>60) 02/06/24 14:18 Glucose 81 mg/dL (65-99) 02/06/24 14:18 Lactic Acid 0.7 mmol/L (0.4-2.0) 02/06/24 14:18 Calcium 8.2 mg/dL (8.5-10.1) L 02/06/24 14:18 Corrected Calcium 9.6 mg/dL (8.5-10.1) 02/06/24 14:18 Total Bilirubin 0.20 mg/dL (0.2-1.0) 02/06/24 14:18 AST 19 Units/L (15-37) 02/06/24 14:18 ALT 12 Units/L (12-78) 02/06/24 14:18 Alkaline Phosphatase 63 Units/L (46-116) 02/06/24 14:18 Troponin I High Sens 25.1 ng/L (4.0-60.0) 02/06/24 14:18 Total Protein 6.3 g/dL (6.4-8.2) L 02/06/24 14:18 Albumin 2.2 g/dL (3.4-5.0) L 02/06/24 14:18 Globulin 4.1 g/dL (2.5-4.5) 02/06/24 14:18 Albumin/Globulin Ratio 0.5 Ratio (1.1-2.1) L 02/06/24 14:18 Lipase 21 Units/L (16-77) 02/06/24 14:18 Specimen Type Clean catch urine 02/06/24 15:29 Urine Color Yellow (YELLOW) 02/06/24 15: Urine Appearance Slightly hazy (CLEAR) 02/06/24 15: Urine pH 6.0 (5.0 - 8.0) 02/06/24 15:29 Ur Specific [place] 1.015 (1.000-1.030) 02/06/24 15: Urine Protein 1+ (NEGATIVE) 02/06/24 15: Urine Glucose (UA) Negative (NEGATIVE) 02/06/24 15: Urine Ketones Negative (NEGATIVE) 02/06/24 15: Urine Blood 2+ (NEGATIVE) 02/06/24 15: Urine Nitrite Negative (NEGATIVE) 02/06/24 15: Urine Bilirubin Negative (NEGATIVE) 02/06/24 15: Urine Urobilinogen Normal (NORMAL) 02/06/24 15:29 Ur Leukocyte Esterase 2+ (NEGATIVE) 02/06/24 15: Urine RBC 0-2 /HPF (0-3) 02/06/24 15:29 Urine WBC 0-2 /HPF (0-5) 02/06/24 15:29 Ur Squamous Epith Cells Rare /HPF (NEGATIVE) 02/06/24 15: Amorphous Sediment 1+ /HPF (NEGATIVE) 02/06/24 15: Urine Bacteria Trace /HPF (NEGATIVE) 02/06/24 15:29 Ur Culture Indicated? No/not indicated 02/06/24 15:29 Opioid Opioid Risk Tool Age (Douglas box if 16-45): No History of Preadolescent Sexual Abuse: No Total: 0 Total Score Risk Category: Low Risk Copyright: Parker VICTORIA predicting aberrant behaviors Discharge Plan Diagnosis Discharge Problem: Traumatic fracture of ribs of right side with pneumothorax, Pleural effusion, right Discharge Plan Patient Disposition: ADMITTED INPATIENT Condition: Stable
[2024-02-06] MEDS: NS 500 ML IV 500 ML IV ONE (14:10)
[2024-02-06 14:41] LABS: BASOPHILS % (AUTO) 0.2 % (0.2-1.0); EOSINOPHILS # (AUTO) 0.2 x10^3/uL (0.0-0.2); EOSINOPHILS % (AUTO) 2.6 % (0.9-2.9); HEMATOCRIT 29.7 % (36.0-47.0); HEMOGLOBIN 9.6 g/dL (12.0-16.0); LYMPHOCYTES # (AUTO) 1.1 X10^3/uL (1.3-2.9); LYMPHOCYTES % (AUTO) 12.8 % (21.0-51.0); MEAN CORPUSCULAR HEMOGLOBIN 29.6 pg (27.0-34.0); MEAN CORPUSCULAR HGB CONC 32.5 g/dL (33.0-35.0); MEAN CORPUSCULAR VOLUME 91.3 fL (80.0-100.0); MEAN PLATELET VOLUME 7.8 fL (7.4-11.0); MONOCYTES # (AUTO) 0.7 x10^3/uL (0.3-0.8); MONOCYTES % (AUTO) 8.3 % (0.0-13.0); NEUTROPHILS # (AUTO) 6.7 x10^3/uL (2.2-4.8); NEUTROPHILS % (AUTO) 76.1 % (42.0-75.0); PLATELET COUNT 315 X10^3/uL (150.0-450.0); RED BLOOD COUNT 3.25 X10^6/uL (3.5-5.4); WHITE BLOOD COUNT 8.9 X10^3/uL (3.6-10.0)
--- NOTE | 2024-02-06 14:55 | RAD ---
EXAM:CHEST, 1 VIEWHISTORY:H/O RIB FRACTURE, PTX;COMPARISON:Prior study or studies were utilized for comparison during interpretation with the most relevant dated 10/24/2022TECHNIQUE:CHEST, 1 VIEWFINDINGS:Chest:Lines and tubes: NoneMediastinum: Cardiac and mediastinal shadow is within normal limits for size and contour.Pulmonary vessels: No pulmonary vascular congestion.Lung edge: No suspicious airspace opacity.Pleura: No effusion. No pneumothorax.Bones and soft tissues: No acute osseous or soft tissue abnormality. Dextroscoliosis of the thoracic spine.IMPRESSION:1. No acute cardiopulmonary abnormalityTHIS IS AN ELECTRONICALLY VERIFIED FINAL REPORT02/06/2024 2:41 PM - Electronically signed by Newton Rossi MD
[2024-02-06 14:56] LABS: ALANINE AMINOTRANSFERASE 12 Units/L (12-78); ALBUMIN 2.2 g/dL (3.4-5.0); ALKALINE PHOSPHATASE 63 Units/L (46-116); ASPARTATE AMINO TRANSFERASE 19 Units/L (15-37); BLOOD UREA NITROGEN 18 mg/dL (7-18); CALCIUM 8.2 mg/dL (8.5-10.1); CARBON DIOXIDE 31.8 mmol/L (21-32); CHLORIDE 103 mmol/L (98-107); COR CA(FOR HYPOALB) 9.6 mg/dL (8.5-10.1); CREATININE 0.87 mg/dL (0.55-1.02); GLUCOSE 81 mg/dL (65-99); LIPASE 21 Units/L (16-77); POTASSIUM 3.5 mmol/L (3.5-5.1); SODIUM 139 mmol/L (136-145); TOTAL PROTEIN 6.3 g/dL (6.4-8.2); eGFR NON BLACK RACES > 60 (>60)
[2024-02-06 15:54] LABS: BILIRUBIN,URINE NEGATIVE (NEGATIVE); BLOOD/HEMOGLOBIN,URINE 2+ (NEGATIVE); GLUCOSE, URINE NEGATIVE (NEGATIVE); KETONES,URINE NEGATIVE (NEGATIVE); LEUKOCYTE ESTERASE ,URINE 2+ (NEGATIVE); NITRITES,URINE NEGATIVE (NEGATIVE); PROTEIN,URINE 1+ (NEGATIVE); UROBILINOGEN,URINE NORMAL (NORMAL)
[2024-02-06 16:04] LABS: APPEARANCE,URINE SLIGHTLY HAZY (CLEAR); COLOR,URINE YELLOW (YELLOW)
[2024-02-06 16:05] LABS: BACTERIA,URINE TRACE /HPF (NEGATIVE); RBC,URINE 0-2 /HPF (0-3); SQUAMOUS EPITHELIAL CELL,UR RARE /HPF (NEGATIVE)
--- NOTE | 2024-02-06 16:46 | CT ---
EXAM:CHEST W/O CONHISTORY:RECENT RIB FRACTURE/ PTX;COMPARISON:None.TECHNIQUE:Nonenhance d spiral CT imaging was performed through the chest and axial, coronal, and sagittal CT images were generated.FINDINGS:Heart size is mildly enlarged. There is atherosclerosis in the left main, lad, circumflex, and RCA. There is ectasia of the ascending aorta at 3.7 cm in diameter. There is heavy atherosclerosis in the aorta. Thyroid gland is enlarged with heterogeneous density. There is a small right-sided pneumothorax. There is a chest tube in place. There is right lower lobe atelectasis and small right pleural effusion. There is atelectasis in the left lung and a small left pleural effusion. There is postsurgical change in the stomach. There is severe atherosclerosis in the abdominal aorta. There is scoliosis and degeneration of the thoracic spine. There are fractures of the right 7th, 8th, 9th, and 10th ribs.IMPRESSION:1. Multiple right rib fractures.2. Small right pneumothorax with chest tube in good position.3. Bilateral lower lobe atelectasis.THIS IS AN ELECTRONICALLY VERIFIED FINAL REPORT02/06/2024 4:38 PM - Electronically signed by Jorge Zendejas MD
[2024-02-06] MEDS: NS 1,000 ML IV 1,000 ML IV SCH (18:42)
[2024-02-06] MEDS: LYRICA CAP 75 mg PO SCH (21:14)
[2024-02-06] MEDS: CARAFATE ORAL SUSP PO SCH (21:14)
[2024-02-06] MEDS: PERCOCET TAB 5/325 MG PO SCH (21:15)
[2024-02-07 06:52] LABS: BASOPHILS % (AUTO) 0.3 % (0.2-1.0); EOSINOPHILS # (AUTO) 1.1 x10^3/uL (0.0-0.2); EOSINOPHILS % (AUTO) 13.6 % (0.9-2.9); HEMATOCRIT 28.8 % (36.0-47.0); HEMOGLOBIN 9.3 g/dL (12.0-16.0); LYMPHOCYTES # (AUTO) 1.6 X10^3/uL (1.3-2.9); LYMPHOCYTES % (AUTO) 20.3 % (21.0-51.0); MEAN CORPUSCULAR HEMOGLOBIN 29.5 pg (27.0-34.0); MEAN CORPUSCULAR HGB CONC 32.1 g/dL (33.0-35.0); MEAN PLATELET VOLUME 7.9 fL (7.4-11.0); MONOCYTES # (AUTO) 0.7 x10^3/uL (0.3-0.8); MONOCYTES % (AUTO) 9.1 % (0.0-13.0); NEUTROPHILS # (AUTO) 4.6 x10^3/uL (2.2-4.8); NEUTROPHILS % (AUTO) 56.7 % (42.0-75.0); PLATELET COUNT 315 X10^3/uL (150.0-450.0); RED BLOOD COUNT 3.13 X10^6/uL (3.5-5.4); RED CELL DISTRIBUTION WIDTH 13.9 % (11.6-16.5); WHITE BLOOD COUNT 8.1 X10^3/uL (3.6-10.0)
[2024-02-07 07:16] LABS: ALANINE AMINOTRANSFERASE 12 Units/L (12-78); ALKALINE PHOSPHATASE 55 Units/L (46-116); ASPARTATE AMINO TRANSFERASE 19 Units/L (15-37); BLOOD UREA NITROGEN 16 mg/dL (7-18); CALCIUM 8.1 mg/dL (8.5-10.1); CARBON DIOXIDE 28.1 mmol/L (21-32); CHLORIDE 107 mmol/L (98-107); COR CA(FOR HYPOALB) 9.7 mg/dL (8.5-10.1); CREATININE 0.74 mg/dL (0.55-1.02); GLUCOSE 79 mg/dL (65-99); POTASSIUM 3.4 mmol/L (3.5-5.1); SODIUM 141 mmol/L (136-145); TOTAL PROTEIN 5.8 g/dL (6.4-8.2); eGFR NON BLACK RACES > 60 (>60)
[2024-02-07] MEDS: PROTONIX TAB 40 MG PO SCH (08:57)
[2024-02-07] MEDS: HYDROCHLOROTHIAZIDE 25 MG TAB PO SCH (08:58)
[2024-02-07] MEDS ORDERED: CONSULT PHARMACY - POTASSIUM & MAGNESIUM XX SCH (09:00)
[2024-02-07] MEDS: K-DUR TAB 20 MEQ PO SCH (09:50)
--- NOTE | 2024-02-07 23:59 | DR.H&P ---
H&P History & Physical for Day of: H&P Date: 02/07/24 Chief Complaint Chief Complaint: Diarrhea Weakness, shortness of breath Allergies Allergies Allergy/AdvReac Type Severity Reaction Status Date / Time No Known Drug Allergies Allergy Verified 10/22/22 11:09 History of Present Illness History of Present Illness: Patient is a 88-year-old female that was recently d ischarged from another hospital after she had a fall that resulted in multiple rib fractures on the right as well as pneumothorax. She was treated with a chest tube for few days and was able to then be discharged. Since discharge she reports she has been having persistent diarrhea, as well as feeling weakness and some shortness of breath. This morning on exam she does report feeling better than she did yesterday. Labs/imaging: WBC 8.1, hemoglobin 9.3, platelets 315, sodium 141, potassium 3.4, creatinine 0.74, glucose 79, lactic acid 0.7, blood cultures pending. CT of the chest was obtained that revealed: 1. Multiple right rib fractures. 2. Small right pneumothorax with chest tube in good position.3. Bilateral lower lobe atelectasis. Patient is admitted for gastroenteritis/diarrhea. She is started on IV fluids as well as getting stool studies. Will consult general surgery for pneumothorax-Dr Ladd. Restart home medications. Otherwise continue current treatment plan. Continue to monitor and follow-up labs/imaging. Past Medical History Past Medical History: Arthritis and Hypertension Past Surgical History Surgical History: Cholecystectomy, Hysterectomy and Weight Loss Surgery Family History Family Medical History: [place] and Hypertension Social History Does patient currently use any type of tobacco product: No Have you used tobacco products in the last 12 months: No Type of Tobacco Use: None Does any household member use tobacco: No Alcohol Use: None Drug Use: None Medications Home Medications: Home Medications Medication Instructions Recorded Confirmed Type hydrochlorothiazide 25 mg tablet 1 tab PO QDAY 10/22/22 02/06/24 History oxycodone-acetaminophen 10 mg-325 1 tab PO BID 10/22/22 02/06/24 History mg tablet pantoprazole 40 mg tablet,delayed 1 tab PO QDAY 10/22/22 02/06/24 History release tramadol 50 mg tablet 2 tab PO BID 10/22/22 02/06/24 History diphenoxylate-atropine 2.5 1 tab PO BID PRN 02/06/24 02/06/24 History mg-0.025 mg tablet metaxalone 800 mg tablet 800 mg PO PRN PRN 02/06/24 02/06/24 History sucralfate 100 mg/mL oral 10 ml PO BID 02/06/24 02/06/24 History suspension Labs 02/07/24 06:14 02/07/24 06:14 Labs: Laboratory WBC 8.1 X10^3/uL (3.6-10.0) 02/07/24 06:14 RBC 3.13 X10^6/uL (3.5-5.4) L 02/07/24 06:14 Hgb 9.3 g/dL (12.0-16.0) L 02/07/24 06:14 Hct 28.8 % (36.0-47.0) L 02/07/24 06:14 MCV 92.0 fL (80.0-100.0) 02/07/24 06:14 MCH 29.5 pg (27.0-34.0) 02/07/24 06:14 MCHC 32.1 g/dL (33.0-35.0) L 02/07/24 06:14 RDW 13.9 % (11.6-16.5) 02/07/24 06:14 Plt Count 315 X10^3/uL (150.0-450.0) 02/07/24 06:14 MPV 7.9 fL (7.4-11.0) 02/07/24 06:14 Neut % (Auto) 56.7 % (42.0-75.0) 02/07/24 06:14 Lymph % (Auto) 20.3 % (21.0-51.0) L 02/07/24 06:14 [place] % (Auto) 9.1 % (0.0-13.0) 02/07/24 06:14 Eos % (Auto) 13.6 % (0.9-2.9) H 02/07/24 06:14 Baso % (Auto) 0.3 % (0.2-1.0) 02/07/24 06:14 Neut # (Auto) 4.6 x10^3/uL (2.2-4.8) 02/07/24 06:14 Lymph # (Auto) 1.6 X10^3/uL (1.3-2.9) 02/07/24 06:14 [place] # (Auto) 0.7 x10^3/uL (0.3-0.8) 02/07/24 06:14 Eos # (Auto) 1.1 x10^3/uL (0.0-0.2) H 02/07/24 06:14 Baso # (Auto) 0.0 X10^3/uL (0.0-0.1) 02/07/24 06:14 Absolute Nucleated RBC 0.0 /100WBC 02/07/24 06:14 Sodium 141 mmol/L (136-145) 02/07/24 06:14 Corrected Sodium TNP 02/07/24 06:14 Potassium 3.4 mmol/L (3.5-5.1) L 02/07/24 06:14 Chloride 107 mmol/L (98-107) 02/07/24 06:14 Carbon Dioxide 28.1 mmol/L (21-32) 02/07/24 06:14 BUN 16 mg/dL (7-18) 02/07/24 06:14 Creatinine 0.74 mg/dL (0.55-1.02) 02/07/24 06:14 Est GFR (MDRD) Af Amer > 60 (>60) 02/07/24 06:14 Est GFR (MDRD) Non-Af > 60 (>60) 02/07/24 06:14 Glucose 79 mg/dL (65-99) 02/07/24 06:14 Lactic Acid 0.7 mmol/L (0.4-2.0) 02/06/24 14:18 Calcium 8.1 mg/dL (8.5-10.1) L 02/07/24 06:14 Corrected Calcium 9.7 mg/dL (8.5-10.1) 02/07/24 06:14 Magnesium 1.8 mg/dL (2.0-2.9) L 02/07/24 06:14 Total Bilirubin 0.30 mg/dL (0.2-1.0) 02/07/24 06:14 AST 19 Units/L (15-37) 02/07/24 06:14 ALT 12 Units/L (12-78) 02/07/24 06:14 Alkaline Phosphatase 55 Units/L (46-116) 02/07/24 06:14 Troponin I High Sens 25.1 ng/L (4.0-60.0) 02/06/24 14:18 Total Protein 5.8 g/dL (6.4-8.2) L 02/07/24 06:14 Albumin 2.0 g/dL (3.4-5.0) L 02/07/24 06:14 Globulin 3.8 g/dL (2.5-4.5) 02/07/24 06:14 Albumin/Globulin Ratio 0.5 Ratio (1.1-2.1) L 02/07/24 06:14 Lipase 21 Units/L (16-77) 02/06/24 14:18 Specimen Type Clean catch urine 02/06/24 15:29 Urine Color Yellow (YELLOW) 02/06/24 15: Urine Appearance Slightly hazy (CLEAR) 02/06/24 15:29 Urine pH 6.0 (5.0 - 8.0) 02/06/24 15:29 Ur Specific [place] 1.015 (1.000-1.030) 02/06/24 15:29 Urine Protein 1+ (NEGATIVE) 02/06/24 15: Urine Glucose (UA) Negative (NEGATIVE) 02/06/24 15: Urine Ketones Negative (NEGATIVE) 02/06/24 15: Urine Blood 2+ (NEGATIVE) 02/06/24 15: Urine Nitrite Negative (NEGATIVE) 02/06/24 15: Urine Bilirubin Negative (NEGATIVE) 02/06/24 15:29 Urine Urobilinogen Normal (NORMAL) 02/06/24 15:29 Ur Leukocyte Esterase 2+ (NEGATIVE) 02/06/24 15:29 Urine RBC 0-2 /HPF (0-3) 02/06/24 15:29 Urine WBC 0-2 /HPF (0-5) 02/06/24 15:29 Ur Squamous Epith Cells Rare /HPF (NEGATIVE) 02/06/24 15: Amorphous Sediment 1+ /HPF (NEGATIVE) 02/06/24 15:29 Urine Bacteria Trace /HPF (NEGATIVE) 02/06/24 15:29 Ur Culture Indicated? No/not indicated 02/06/24 15:29 Review of Systems Constitutional: Weakness Eyes: No Symptoms Reported ENT: No Symptoms Reported Respiratory: Shortness of Breath Cardiovascular: No Symptoms Reported Gastrointestinal: Diarrhea Genitourinary: No Symptoms Reported Musculoskeletal: No Symptoms Reported Skin: No Symptoms Reported Neurological: No Symptoms Reported Physical Exam Vital Signs: Vital Signs Temperature 97.8 F Temperature 97.4 F Pulse Rate [Apical] 67 Pulse Rate [Apical] 68 Respiratory Rate 18 Respiratory Rate 22 Respiratory Rate 21 Respiratory Rate 18 Blood Pressure [Left Arm] 149/65 Blood Pressure [Left Arm] 161/69 O2 Sat by Pulse Oximetry 98 O2 Sat by Pulse Oximetry 95 Oriented: Normal Eyes: Normal Ear: Normal Nose: Normal Throat: Normal Respiratory: Clear Throughout Cardiovascular: Normal : Normal Auscultation: Bowel Sounds: Normal Palpation: Normal Tenderness: Normal Skin: Normal Musculoskeletal: Normal Psychiatric: Normal Mood Description: Calm and Appropriate Affect: Normal Speech Pattern: Clear and Appropriate Assessment/Plan (1) Traumatic fracture of ribs of right side with pneumothorax: Status: Acute (2) Dehydration: Status: Acute (3) Generalized weakness: Status: Acute (4) Diarrhea: Status: Acute Review H&P Reviewed: Yes Patient was examined?: Yes
[2024-02-08] MEDS: RESTORIL CAP 15 MG PO PRN (00:54)
[2024-02-08 06:24] LABS: BASOPHILS % (AUTO) 0.4 % (0.2-1.0); EOSINOPHILS # (AUTO) 1.2 x10^3/uL (0.0-0.2); EOSINOPHILS % (AUTO) 15.2 % (0.9-2.9); HEMATOCRIT 25.3 % (36.0-47.0); HEMOGLOBIN 8.2 g/dL (12.0-16.0); LYMPHOCYTES # (AUTO) 2.7 X10^3/uL (1.3-2.9); LYMPHOCYTES % (AUTO) 34.4 % (21.0-51.0); MEAN CORPUSCULAR HEMOGLOBIN 29.6 pg (27.0-34.0); MEAN CORPUSCULAR HGB CONC 32.5 g/dL (33.0-35.0); MEAN CORPUSCULAR VOLUME 91.2 fL (80.0-100.0); MEAN PLATELET VOLUME 7.9 fL (7.4-11.0); MONOCYTES # (AUTO) 0.5 x10^3/uL (0.3-0.8); NEUTROPHILS # (AUTO) 3.4 x10^3/uL (2.2-4.8); PLATELET COUNT 320 X10^3/uL (150.0-450.0); RED BLOOD COUNT 2.78 X10^6/uL (3.5-5.4); RED CELL DISTRIBUTION WIDTH 13.5 % (11.6-16.5); WHITE BLOOD COUNT 7.8 X10^3/uL (3.6-10.0)
[2024-02-08 06:40] LABS: ALANINE AMINOTRANSFERASE 12 Units/L (12-78); ALBUMIN 1.8 g/dL (3.4-5.0); ALKALINE PHOSPHATASE 49 Units/L (46-116); ASPARTATE AMINO TRANSFERASE 14 Units/L (15-37); BLOOD UREA NITROGEN 13 mg/dL (7-18); CHLORIDE 109 mmol/L (98-107); COR CA(FOR HYPOALB) 9.8 mg/dL (8.5-10.1); CREATININE 0.75 mg/dL (0.55-1.02); GLUCOSE 70 mg/dL (65-99); POTASSIUM 3.5 mmol/L (3.5-5.1); SODIUM 142 mmol/L (136-145); TOTAL PROTEIN 5.2 g/dL (6.4-8.2); eGFR NON BLACK RACES > 60 (>60)
--- NOTE | 2024-02-08 07:06 | RAD ---
EXAM:AP chestHISTORY:PneumoniaCOMPARISON: 024FINDINGS:Heart size continues normal. Prominent interstitial pattern is noted without evidence for consolidation, pulmonary edema or pleural effusion. 5% right apical pneumothorax.IMPRESSION:Small right apical pneumothorax. Suspect mild bibasal atelectasis as described on recent chest CT. No segmental or lobar consolidation is noted.THIS IS AN ELECTRONICALLY VERIFIED FINAL REPORT02/08/2024 7:03 AM - Electronically signed by Macario Rai MD
[2024-02-08 15:31] LABS: CRYPTOSPORIDIUM PARVUM ANTIGEN NEGATIVE (NEGATIVE); GIARDIA LAMBLIA ANTIGEN NEGATIVE (NEGATIVE)
[2024-02-08] MEDS: FLAGYL TAB 500 MG PO STA (22:40)
[2024-02-08] MEDS: VANCOMYCIN HCL 250 MG CAP PO STA (22:40)
[2024-02-08] MEDS ORDERED: FLAGYL TAB 500 MG PO SCH (23:00)
[2024-02-09] MEDS: VANCOMYCIN HCL 250 MG CAP PO SCH (02:47)
[2024-02-09] MEDS: FLAGYL TAB 500 MG PO SCH (05:23)
[2024-02-09 05:29] LABS: BASOPHILS % (AUTO) 0.2 % (0.2-1.0); EOSINOPHILS # (AUTO) 1.1 x10^3/uL (0.0-0.2); EOSINOPHILS % (AUTO) 13.2 % (0.9-2.9); HEMATOCRIT 24.5 % (36.0-47.0); LYMPHOCYTES # (AUTO) 2.4 X10^3/uL (1.3-2.9); LYMPHOCYTES % (AUTO) 28.9 % (21.0-51.0); MEAN CORPUSCULAR HEMOGLOBIN 29.6 pg (27.0-34.0); MEAN CORPUSCULAR HGB CONC 32.5 g/dL (33.0-35.0); MEAN CORPUSCULAR VOLUME 91.1 fL (80.0-100.0); MEAN PLATELET VOLUME 8.3 fL (7.4-11.0); MONOCYTES # (AUTO) 0.5 x10^3/uL (0.3-0.8); MONOCYTES % (AUTO) 6.2 % (0.0-13.0); NEUTROPHILS # (AUTO) 4.2 x10^3/uL (2.2-4.8); NEUTROPHILS % (AUTO) 51.5 % (42.0-75.0); PLATELET COUNT 345 X10^3/uL (150.0-450.0); RED BLOOD COUNT 2.69 X10^6/uL (3.5-5.4); RED CELL DISTRIBUTION WIDTH 13.5 % (11.6-16.5); WHITE BLOOD COUNT 8.2 X10^3/uL (3.6-10.0)
[2024-02-09 05:37] LABS: ALANINE AMINOTRANSFERASE 10 Units/L (12-78); ALBUMIN 1.8 g/dL (3.4-5.0); ALKALINE PHOSPHATASE 48 Units/L (46-116); ASPARTATE AMINO TRANSFERASE 14 Units/L (15-37); BLOOD UREA NITROGEN 11 mg/dL (7-18); CALCIUM 8.2 mg/dL (8.5-10.1); CARBON DIOXIDE 28.4 mmol/L (21-32); CHLORIDE 109 mmol/L (98-107); CREATININE 0.73 mg/dL (0.55-1.02); GLUCOSE 75 mg/dL (65-99); POTASSIUM 3.8 mmol/L (3.5-5.1); SODIUM 143 mmol/L (136-145); TOTAL PROTEIN 4.9 g/dL (6.4-8.2); eGFR NON BLACK RACES > 60 (>60)
[2024-02-10 06:22] LABS: BASOPHILS # (AUTO) 0.1 X10^3/uL (0.0-0.1); BASOPHILS % (AUTO) 0.9 % (0.2-1.0); EOSINOPHILS # (AUTO) 0.9 x10^3/uL (0.0-0.2); EOSINOPHILS % (AUTO) 9.6 % (0.9-2.9); HEMATOCRIT 28.3 % (36.0-47.0); HEMOGLOBIN 9.1 g/dL (12.0-16.0); LYMPHOCYTES # (AUTO) 2.8 X10^3/uL (1.3-2.9); LYMPHOCYTES % (AUTO) 28.9 % (21.0-51.0); MEAN CORPUSCULAR HEMOGLOBIN 29.2 pg (27.0-34.0); MEAN CORPUSCULAR HGB CONC 32.1 g/dL (33.0-35.0); MEAN PLATELET VOLUME 8.9 fL (7.4-11.0); MONOCYTES # (AUTO) 0.6 x10^3/uL (0.3-0.8); MONOCYTES % (AUTO) 6.3 % (0.0-13.0); NEUTROPHILS # (AUTO) 5.2 x10^3/uL (2.2-4.8); NEUTROPHILS % (AUTO) 54.3 % (42.0-75.0); PLATELET COUNT 367 X10^3/uL (150.0-450.0); RED BLOOD COUNT 3.11 X10^6/uL (3.5-5.4); WHITE BLOOD COUNT 9.6 X10^3/uL (3.6-10.0)
[2024-02-10 06:35] LABS: ALANINE AMINOTRANSFERASE 8 Units/L (12-78); ALKALINE PHOSPHATASE 57 Units/L (46-116); ASPARTATE AMINO TRANSFERASE 15 Units/L (15-37); BLOOD UREA NITROGEN 10 mg/dL (7-18); CALCIUM 8.5 mg/dL (8.5-10.1); CARBON DIOXIDE 24.6 mmol/L (21-32); CHLORIDE 108 mmol/L (98-107); COR CA(FOR HYPOALB) 10.1 mg/dL (8.5-10.1); CREATININE 0.77 mg/dL (0.55-1.02); GLUCOSE 70 mg/dL (65-99); POTASSIUM 3.8 mmol/L (3.5-5.1); SODIUM 142 mmol/L (136-145); TOTAL PROTEIN 5.5 g/dL (6.4-8.2); eGFR NON BLACK RACES > 60 (>60)
[2024-02-10] MEDS ORDERED: CONSULT PHARMACY - POTASSIUM & MAGNESIUM XX SCH (09:00)
[2024-02-10] MEDS: K-DUR TAB 20 MEQ PO ONE (09:45)
[2024-02-10] MEDS: MAG-OX TAB PO SCH (09:46)
--- NOTE | 2024-02-10 10:22 | RAD ---
EXAM:CHEST, 1 VIEWHISTORY:PNEUMOTHORAX, MULTIPLE RIB FRACTURES;COMPARISON:Prior study or studies were utilized for comparison during interpretation with the most relevant dated 02/08/2024TECHNIQUE:CHEST, 1 VIEWFINDINGS:No change to tiny right apex pneumothorax.All other findings are stable compared to 02/08/2024IMPRESSION:1. No change to the tiny right apex pneumothoraxTHIS IS AN ELECTRONICALLY VERIFIED FINAL REPORT02/10/2024 10:13 AM - Electronically signed by Newton Rossi MD
[2024-02-10 14:55] VITALS: BP 141/67; PULSE 63; RESP 18; TEMP 98.4; O2SAT 93
--- NOTE | 2024-02-12 10:20 | W.DIS.FURT ---
Summary of Discharge Discharge Summary of Date Date of Exam: 02/10/24 Admission Date Date of Admission: 02/06/24 Admission Diagnosis Patient Problems (Updated 02/10/24 @ 10:36 by Winnie Mayfield) Traumatic fracture of ribs of right side with pneumothorax (Acute) S22.41XA, S27.0XXA Pleural effusion, right (Acute) J90 Hospital Course: Ms Hartman is a 88-year-old female that was recently discharged from another hospital after she had a fall that resulted in multiple rib fractures on the right as well as pneumothorax. She was treated with a chest tube for few days and was able to then be discharged. Since discharge she reports she has been having persistent diarrhea, as well as feeling weakness and some shortness of breath. In the ER, CT-chest showed Multiple right rib fractures. 2. Small right pneumothorax 3. Bilateral lower lobe atelectasis. Patient was admitted for pleuritic pain, small pneumothorax and gastroenteritis/diarrhea. She is started on IV fluids and pain control. Stool studies showed C. diff infection so patient was started on PO vancomycin. Dr Cunha was also consulted for pneumothorax and recommended monitoring with serial CXRs. Patient's diarrhea was improving and she was tolerating PO intake. Her labs were monitored daily and electrolytes replaced as needed. Her CXR remains stable with no new changes. She was not requiring oxygen and pain was well-controlled. She was stable for discharge home and will f/u with PCP as scheduled. Vital Signs: Vital Signs (72 hours) 02/07/24 12:00 02/07/24 16:00 02/07/24 19:00 Temperature 96.9 F L 97.4 F L Pulse Rate [Apical] 63 68 Pulse Rate [Left Brachial] Pulse Rate [Right Brachial] Respiratory Rate 17 18 Blood Pressure [Left Arm] 161/69 Blood Pressure [Right Arm] 171/78 O2 Sat by Pulse Oximetry 98 95 Oxygen Delivery Method Room Air Room Air Room Air Oxygen Flow Rate FIO2% 02/07/24 20:00 02/07/24 20:37 02/07/24 21:01 Temperature 97.8 F Pulse Rate [Apical] 67 Pulse Rate [Left Brachial] Pulse Rate [Right Brachial] Respiratory Rate 21 22 Blood Pressure [Left Arm] 149/65 Blood Pressure [Right Arm] O2 Sat by Pulse Oximetry 98 Oxygen Delivery Method Room Air Nasal Cannula Oxygen Flow Rate 2 FIO2% 28 02/07/24 22:06 02/08/24 00:00 02/08/24 04:00 Temperature 98.1 F 98.6 F Pulse Rate [Apical] Pulse Rate [Left Brachial] Pulse Rate [Right Brachial] 61 58 L Respiratory Rate 18 20 20 Blood Pressure [Left Arm] Blood Pressure [Right Arm] 137/66 132/63 O2 Sat by Pulse Oximetry 98 97 Oxygen Delivery Method Room Air Room Air Oxygen Flow Rate FIO2% 02/08/24 08:00 02/08/24 08:45 02/08/24 09:01 Temperature 97.6 F Pulse Rate [Apical] Pulse Rate [Left Brachial] Pulse Rate [Right Brachial] 69 Respiratory Rate 18 18 Blood Pressure [Left Arm] 155/70 Blood Pressure [Right Arm] O2 Sat by Pulse Oximetry 95 Oxygen Delivery Method Room Air Room Air Oxygen Flow Rate FIO2% 02/08/24 09:45 02/08/24 12:00 02/08/24 16:00 Temperature 97.1 F L 98 F Pulse Rate [Apical] Pulse Rate [Left Brachial] Pulse Rate [Right Brachial] 53 L 58 L Respiratory Rate 19 18 17 Blood Pressure [Left Arm] 136/60 135/63 Blood Pressure [Right Arm] O2 Sat by Pulse Oximetry 97 100 Oxygen Delivery Method Room Air Room Air Oxygen Flow Rate FIO2% 02/08/24 19:00 02/08/24 19:52 02/08/24 20:20 Temperature 98.0 F Pulse Rate [Apical] Pulse Rate [Left Brachial] Pulse Rate [Right Brachial] 63 Respiratory Rate 20 Blood Pressure [Left Arm] 148/67 Blood Pressure [Right Arm] O2 Sat by Pulse Oximetry 100 Oxygen Delivery Method Nasal Cannula Room Air Nasal Cannula Oxygen Flow Rate 2 2 FIO2% 28 02/08/24 21:06 02/08/24 22:06 02/09/24 00:00 Temperature 97.7 F Pulse Rate [Apical] Pulse Rate [Left Brachial] 73 Pulse Rate [Right Brachial] Respiratory Rate 20 16 20 Blood Pressure [Left Arm] 120/53 Blood Pressure [Right Arm] O2 Sat by Pulse Oximetry 95 Oxygen Delivery Method Nasal Cannula Oxygen Flow Rate 2 FIO2% 02/09/24 05:05 02/09/24 08:50 02/09/24 09:00 Temperature 97.9 F Pulse Rate [Apical] Pulse Rate [Left Brachial] 63 Pulse Rate [Right Brachial] Respiratory Rate 20 20 Blood Pressure [Left Arm] 138/65 Blood Pressure [Right Arm] O2 Sat by Pulse Oximetry 95 Oxygen Delivery Method Nasal Cannula Nasal Cannula Oxygen Flow Rate 2 2 FIO2% 02/09/24 08:00 02/09/24 09:50 02/09/24 12:00 Temperature 98 F 97.4 F L Pulse Rate [Apical] Pulse Rate [Left Brachial] 65 59 L Pulse Rate [Right Brachial] Respiratory Rate 17 20 17 Blood Pressure [Left Arm] Blood Pressure [Right Arm] 154/67 142/64 O2 Sat by Pulse Oximetry 90 L 99 Oxygen Delivery Method Room Air Room Air Oxygen Flow Rate 2 FIO2% 02/09/24 16:00 02/09/24 21:09 02/09/24 19:55 Temperature 98 F Pulse Rate [Apical] Pulse Rate [Left Brachial] 70 Pulse Rate [Right Brachial] Respiratory Rate 18 18 Blood Pressure [Left Arm] 146/64 Blood Pressure [Right Arm] O2 Sat by Pulse Oximetry 95 Oxygen Delivery Method Room Air Nasal Cannula Oxygen Flow Rate 2 2 FIO2% 28 02/09/24 20:00 02/09/24 19:00 02/09/24 23:41 Temperature 98.4 F 98.0 F Pulse Rate [Apical] Pulse Rate [Left Brachial] 67 67 Pulse Rate [Right Brachial] Respiratory Rate 20 20 Blood Pressure [Left Arm] 172/74 Blood Pressure [Right Arm] 146/65 O2 Sat by Pulse Oximetry 98 96 Oxygen Delivery Method Room Air Nasal Cannula Room Air Oxygen Flow Rate 2 FIO2% 02/09/24 22:09 02/10/24 04:00 02/10/24 09:29 Temperature 98.3 F Pulse Rate [Apical] Pulse Rate [Left Brachial] 64 Pulse Rate [Right Brachial] Respiratory Rate 18 20 Blood Pressure [Left Arm] Blood Pressure [Right Arm] 160/72 O2 Sat by Pulse Oximetry 95 Oxygen Delivery Method Room Air Room Air Oxygen Flow Rate 2 FIO2% 28 02/10/24 09:45 Temperature Pulse Rate [Apical] Pulse Rate [Left Brachial] Pulse Rate [Right Brachial] Respiratory Rate 20 Blood Pressure [Left Arm] Blood Pressure [Right Arm] O2 Sat by Pulse Oximetry Oxygen Delivery Method Oxygen Flow Rate FIO2% Labs: Laboratory Last Values WBC 9.6 X10^3/uL (3.6-10.0) 02/10/24 05:27 RBC 3.11 X10^6/uL (3.5-5.4) L 02/10/24 05:27 Hgb 9.1 g/dL (12.0-16.0) L 02/10/24 05:27 Hct 28.3 % (36.0-47.0) L 02/10/24 05:27 MCV 91.0 fL (80.0-100.0) 02/10/24 05:27 MCH 29.2 pg (27.0-34.0) 02/10/24 05:27 MCHC 32.1 g/dL (33.0-35.0) L 02/10/24 05:27 RDW 14.0 % (11.6-16.5) 02/10/24 05:27 Plt Count 367 X10^3/uL (150.0-450.0) 02/10/24 05:27 MPV 8.9 fL (7.4-11.0) 02/10/24 05:27 Neut % (Auto) 54.3 % (42.0-75.0) 02/10/24 05:27 Lymph % (Auto) 28.9 % (21.0-51.0) 02/10/24 05:27 [place] % (Auto) 6.3 % (0.0-13.0) 02/10/24 05:27 Eos % (Auto) 9.6 % (0.9-2.9) H 02/10/24 05:27 Baso % (Auto) 0.9 % (0.2-1.0) 02/10/24 05:27 Neut # (Auto) 5.2 x10^3/uL (2.2-4.8) H 02/10/24 05:27 Lymph # (Auto) 2.8 X10^3/uL (1.3-2.9) 02/10/24 05:27 [place] # (Auto) 0.6 x10^3/uL (0.3-0.8) 02/10/24 05:27 Eos # (Auto) 0.9 x10^3/uL (0.0-0.2) H 02/10/24 05:27 Baso # (Auto) 0.1 X10^3/uL (0.0-0.1) 02/10/24 05:27 Absolute Nucleated RBC 0.1 /100WBC 02/10/24 05:27 Sodium 142 mmol/L (136-145) 02/10/24 05:27 Corrected Sodium TNP 02/10/24 05:27 Potassium 3.8 mmol/L (3.5-5.1) 02/10/24 05:27 Chloride 108 mmol/L (98-107) H 02/10/24 05:27 Carbon Dioxide 24.6 mmol/L (21-32) 02/10/24 05:27 BUN 10 mg/dL (7-18) 02/10/24 05:27 Creatinine 0.77 mg/dL (0.55-1.02) 02/10/24 05:27 Est GFR (MDRD) Af Amer > 60 (>60) 02/10/24 05:27 Est GFR (MDRD) Non-Af > 60 (>60) 02/10/24 05:27 Glucose 70 mg/dL (65-99) 02/10/24 05:27 Lactic Acid 0.7 mmol/L (0.4-2.0) 02/06/24 14:18 Calcium 8.5 mg/dL (8.5-10.1) 02/10/24 05:27 Corrected Calcium 10.1 mg/dL (8.5-10.1) 02/10/24 05:27 Magnesium 1.8 mg/dL (2.0-2.9) L 02/07/24 06:14 Total Bilirubin 0.20 mg/dL (0.2-1.0) 02/10/24 05:27 AST 15 Units/L (15-37) 02/10/24 05:27 ALT 8 Units/L (12-78) L 02/10/24 05:27 Alkaline Phosphatase 57 Units/L (46-116) 02/10/24 05:27 Troponin I High Sens 25.1 ng/L (4.0-60.0) 02/06/24 14:18 Total Protein 5.5 g/dL (6.4-8.2) L 02/10/24 05:27 Albumin 2.0 g/dL (3.4-5.0) L 02/10/24 05:27 Globulin 3.5 g/dL (2.5-4.5) 02/10/24 05:27 Albumin/Globulin Ratio 0.6 Ratio (1.1-2.1) L 02/10/24 05: Lipase 21 Units/L (16-77) 02/06/24 14:18 Specimen Type Clean catch urine 02/06/24 15:29 Urine Color Yellow (YELLOW) 02/06/24 15: Urine Appearance Slightly hazy (CLEAR) 02/06/24 15: Urine pH 6.0 (5.0 - 8.0) 02/06/24 15:29 Ur Specific [place] 1.015 (1.000-1.030) 02/06/24 15: Urine Protein 1+ (NEGATIVE) 02/06/24 15: Urine Glucose (UA) Negative (NEGATIVE) 02/06/24 15: Urine Ketones Negative (NEGATIVE) 02/06/24 15: Urine Blood 2+ (NEGATIVE) 02/06/24 15: Urine Nitrite Negative (NEGATIVE) 02/06/24 15: Urine Bilirubin Negative (NEGATIVE) 02/06/24 15: Urine Urobilinogen Normal (NORMAL) 02/06/24 15:29 Ur Leukocyte Esterase 2+ (NEGATIVE) 02/06/24 15:29 Urine RBC 0-2 /HPF (0-3) 02/06/24 15:29 Urine WBC 0-2 /HPF (0-5) 02/06/24 15:29 Ur Squamous Epith Cells Rare /HPF (NEGATIVE) 02/06/24 15: Amorphous Sediment 1+ /HPF (NEGATIVE) 02/06/24 15:29 Urine Bacteria Trace /HPF (NEGATIVE) 02/06/24 15:29 Ur Culture Indicated? No/not indicated 02/06/24 15:29 Stl Occult Blood (IFOB) Negative (NEGATIVE) 02/08/24 14:30 Cryptosporid parvum Ag Negative (NEGATIVE) 02/08/24 14:30 Giardia lamblia Ag Negative (NEGATIVE) 02/08/24 14:30 GI Pathogen (PCR) See scanned report 02/07/24 09:35 Reason For Visit: PNEUMOTHORAX, RIB FRACTURES Discharge Diagnosis All Active Problems (Updated 02/10/24 @ 10:36 by Winnie Mayfield) C. difficile diarrhea (Acute) Diarrhea (Acute) Left ankle sprain (Acute) Right ankle sprain (Acute) History of sprain of both ankles (Acute) Dehydration (Acute) Dysphagia (Acute) Left leg pain (Acute) Generalized weakness (Acute) Hypoproteinemia (Acute) Acute left flank pain (Acute) Acute hyperkalemia (Acute) Acute febrile illness (Acute) Chronic anemia (Acute) Chronic kidney disease (CKD) (Acute) Metabolic acidosis, increased anion gap (Acute) Constipation (Acute) Frequent PVCs (Acute) Infection of wound due to methicillin resistant Staphylococcus aureus (MRSA) (Acute) Contusion of head (Acute) COVID-19 virus infection (Acute) Dehydration (Acute) Generalized muscle weakness (Acute) Bronchitis (Acute) Bronchitis due to COVID-19 virus (Acute) HTN (hypertension) (Chronic) GERD (gastroesophageal reflux disease) (Chronic) Traumatic fracture of ribs of right side with pneumothorax (Acute) Pleural effusion, right (Acute) Plan of Treatment: Continue with present treatment and follow up plan. Pt is to keep follow up appointment as instructed and take medications as ordered. Discharge Medications Discharge Medications: No Known Drug Allergies Allergy (Verified 10/22/22 11:09) CONTINUE taking the following medications diphenoxylate-atropine 2.5 mg-0.025 mg tablet 1 tab PO BID PRN 02/06/24 [History] metaxalone 800 mg tablet 800 mg PO PRN PRN 02/06/24 [History] sucralfate 100 mg/mL oral suspension 10 ml PO BID 02/06/24 [History] New Prescriptions vancomycin 125 mg capsule 125 mg PO QID 8 days #32 caps 02/10/24 [Rx] Discharge Disposition Discharge Disposition: home Discharge Condition: stable Discharge Plan Discharge Plan Hospital Course: Ms Hartman is a 88-year-old female that was recently discharged from another hospital after she had a fall that resulted in multiple rib fractures on the right as well as pneumothorax. She was treated with a chest tube for few days and was able to then be discharged. Since discharge she reports she has been having persistent diarrhea, as well as feeling weakness and some shortness of breath. In the ER, CT-chest showed Multiple right rib fractures. 2. Small right pneumothorax 3. Bilateral lower lobe atelectasis. Patient was admitted for pleuritic pain, small pneumothorax and gastroenteritis/diarrhea. She is started on IV fluids and pain control. Stool studies showed C. diff infection so patient was started on PO vancomycin. Dr Cunha was also consulted for pneumothorax and recommended monitoring with serial CXRs. Patient's diarrhea was improving and she was tolerating PO intake. Her labs were monitored daily and electrolytes replaced as needed. Her CXR remains stable with no new changes. She was not requiring oxygen and pain was well-controlled. She was stable for discharge home and will f/u with PCP as scheduled. Patient Disposition: 01 HOME, SELF-CARE Condition: Stable Health Concerns: Post Hospitalization: new medications and changes needed to prevent readmission or further decline. Pt educated and given instructions on all concerns. Care Plan Goals: Problem: Pain/Alteration in Comfort Goal: Improve/ Resolve Pain; Achieve Pain Tolerance Instructions: Take pain medications as prescribed. Contact your primary care provider if your pain is unrelieved or worsens. Follow up with primary care provider as directed. Plan of Treatment: Continue with present treatment and follow up plan. Pt is to keep follow up appointment as instructed and take medications as ordered. Prescription drug monitoring program results: PDMP reviewed and no concerns identified Prescriptions: New vancomycin 125 mg capsule 125 mg PO QID 8 Days Qty: 32 0RF Continued sucralfate 100 mg/mL suspension 10 ml PO BID diphenoxylate-atropine 2.5-0.025 mg tablet 1 tab PO BID PRN metaxalone 800 mg tablet 800 mg PO PRN PRN tramadol 50 mg tablet 2 tab PO BID oxycodone-acetaminophen 10-325 mg tablet 1 tab PO BID pantoprazole 40 mg tablet,delayed release (DR/EC) 1 tab PO QDAY hydrochlorothiazide 25 mg tablet 1 tab PO QDAY pregabalin [Lyrica] 75 mg Capsule 75 mg PO HS Qty: 30 3RF Rx Instructions: TAKE ONE CAPSULE AT BEDTIME Orders to Discharge Patient Discharge Orders: Discharge (Routine); Ordered 02/10/24 Ordered By: Winnie Mayfield Follow ups/Referrals Follow ups/Referrals: SYEDA LEE [Nurse Practitioner] - 02/18/24 10:20 am Instructions Instructions: Diarrhea, Adult, Food Choices to Help Relieve Diarrhea, Adult, Diarrhea, Adult, [id number] Stand Alone Forms: Excuse From Work or School, Post Hospital Follow Up Care
== END 2024-02-10 12:22 | disposition home or self-care (01) ==
LOC: MED/SURG 13:13 → ER 13:13 → OBSVTOIN 17:18 → INTOOBSV 17:18 → MED/SURG 19:24
PROVIDERS: ADMIT Internal Medicine; ATTEND Internal Medicine